=== PATIENT | male | born 1935 | race Caucasian/White ===

== ENCOUNTER 2016-10-02 13:30 | Emergency (ER) | payer MEDICARE, BC ==
[2016-10-02 13:36] LABS: Glucose,Whole Blood 520 mg/dL (75-99)
[2016-10-02] MEDS ORDERED: SODIUM CHLORIDE 0.9% 500 ML IV STA (13:40)
[2016-10-02] MEDS ORDERED: SODIUM CHLORIDE 0.9% 1,000 ML IV STA ×2 (13:40→14:29)
--- NOTE | 2016-10-02 13:51 | ED ---
General Adult HPI - General Chief complaint: Recheck/Abnormal Lab/Rx Stated complaint: Hyperglycemia Time Seen by Provider: 10/02/16 13:33 Source: patient, EMS Mode of arrival: EMS Limitations: no limitations - History of Present Illness Initial comments: This is a 72-year-old male to the ER for evaluation of elevated blood sugar. Patient has history of elevated blood sugar history of diabetes on oral hypoesthesias. Patient admits to all normal symptoms. No shortness of breath but he does complain of increased thirst and increased urination. No chest pain bowel pain, no nausea vomiting or diarrhea. - Related Data Home Medications Medication Instructions Recorded Confirmed Rosuvastatin Calcium [Crestor] 10 mg PO HS 07/21/15 10/02/16 Atenolol [Tenormin] 25 mg PO BID 10/01/15 10/02/16 [place]-3 Fatty Acids/Fish Oil [Fish 1 cap PO DAILY 10/01/15 10/02/16 Oil 1,000 mg Softgel] Pioglitazone HCl [Actos] 45 mg PO DAILY 10/01/15 10/02/16 Cholecalciferol [Vitamin D3] 2,000 unit PO DAILY 10/02/16 10/02/16 Ergocalciferol [Vitamin D2] 50,000 unit PO TH 10/02/16 10/02/16 Ferrous Sulfate [Feosol] 325 mg PO TID 10/02/16 10/02/16 Pantoprazole Sodium [Protonix] 40 mg PO DAILY 10/02/16 10/02/16 Warfarin Sodium [Warfarin Sodium] 5 mg PO SUMOTUWEFRSA@1700 10/02/16 10/02/16 Warfarin Sodium [Warfarin Sodium] 7.5 mg PO TH@1700 10/02/16 10/02/16 Previous Rx's Medication Instructions Recorded Digoxin [Lanoxin] 125 mcg PO DAILY #30 tab 07/26/15 glipiZIDE [Glucotrol] 5 mg PO BID #60 tab 10/02/16 Allergies Allergy/AdvReac Type Severity Reaction Status Date / Time chlorpheniramine Allergy Unknown Verified 10/02/16 14:39 [From Deconamine] Penicillins Allergy Unknown Verified 10/02/16 14:21 pseudoephedrine Allergy Unknown Verified 10/02/16 14:39 [From Deconamine] Review of Systems ROS Statement: Those systems with pertinent positive or pertinent negative responses have been documented in the HPI. ROS Other: All systems not noted in ROS Statement are negative. Past Medical History Past Medical History: Atrial Fibrillation, CVA/TIA, Diabetes Mellitus, GERD/ Reflux, GI Bleed, Hyperlipidemia, Hypertension, Renal Disease Additional Past Medical History / Comment(s): ANtral ulcer per EGD. Other hx: episodes of epistaxis, chronic renal failure, iron deficiency anemia, vertigo. History of Any Multi-Drug Resistant Organisms: None Reported Past Surgical History: Appendectomy, Tonsillectomy Additional Past Surgical History / Comment(s): 07/23/15 EGD Past Anesthesia/Blood Transfusion Reactions: No Reported Reaction Additional Past Anesthesia/Blood Transfusion Reaction / Comment(s): Pt recently (last admission) received blood without reaction. Past Psychological History: No Psychological Hx Reported Additional Psychological History / Comment(s): claustrophobia. Smoking Status: Never smoker Past Alcohol Use History: Rare Past Drug Use History: None Reported - Past Family History Mother Family Medical History: Asthma, Congestive Heart Failure (CHF), COPD Father Additional Family Medical History / Comment(s): anerurysm between the heart and the lung General Exam Limitations: no limitations General appearance: alert, in no apparent distress Head exam: Present: atraumatic, normocephalic, normal inspection Eye exam: Present: normal appearance, PERRL, EOMI. Absent: scleral icterus, conjunctival injection, periorbital swelling ENT exam: Present: normal exam, mucous membranes moist Neck exam: Present: normal inspection. Absent: tenderness, meningismus, lymphadenopathy Respiratory exam: Present: normal lung sounds bilaterally. Absent: respiratory distress, wheezes, rales, rhonchi, stridor Cardiovascular Exam: Present: regular rate, normal rhythm, normal heart sounds. Absent: systolic murmur, diastolic murmur, rubs, gallop, clicks GI/Abdominal exam: Present: soft, normal bowel sounds. Absent: distended, tenderness, guarding, rebound, rigid Extremities exam: Present: normal inspection, full ROM, normal capillary refill. Absent: tenderness, pedal edema, joint swelling, calf tenderness Back exam: Present: normal inspection Neurological exam: Present: alert, oriented X3, CN II-XII intact Psychiatric exam: Present: normal affect, normal mood Skin exam: Present: warm, dry, intact, normal color. Absent: rash Course Vital Signs 10/02/16 10/02/16 10/02/16 13:33 14:20 15:39 Temperature 97.5 F L 96.5 F L Pulse Rate 69 66 62 Respiratory 20 20 18 Rate Blood Pressure 215/84 189/83 190/84 O2 Sat by Pulse 97 98 99 Oximetry EKG Findings - EKG Comments: EKG Findings:: EKG shows normal sinus rhythm at 69, OH 88, QRS 94, QTC 415 Medical Decision Making - Medical Decision Making 80 male ER for evaluation of elevated blood sugar . patient's blood sugar this time is improved however is normal . patient given diabetic education here in the emergency room , will add oralHypoglycemic and patient will be discharged home - Lab Data Result diagrams: 10/02/16 13:40 10/02/16 13:40 Lab Results 10/02/16 10/02/16 10/02/16 Range/Units 13:34 13:40 13:40 WBC (3.8-10.6) k/uL RBC (4.30-5.90) m/uL Hgb (13.0-17.5) gm/dL Hct (39.0-53.0) % MCV (80.0-100.0) fL MCH (25.0-35.0) pg MCHC (31.0-37.0) g/dL RDW (11.5-15.5) % Plt Count (150-450) k/uL Neutrophils % % Lymphocytes % % Monocytes % % Eosinophils % % Basophils % % Neutrophils # (1.3-7.7) k/uL Lymphocytes # (1.0-4.8) k/uL Monocytes # (0-1.0) k/uL Eosinophils # (0-0.7) k/uL Basophils # (0-0.2) k/uL PT (9.0-12.0) sec INR (<1.1) APTT (22.0-30.0) sec Sodium 137 (137-145) mmol/L Potassium 3.3 L (3.5-5.1) mmol/L Chloride 118 H (98-107) mmol/L Carbon Dioxide 16 L (22-30) mmol/L Anion Gap 3 mmol/L BUN 16 (9-20) mg/dL Creatinine 0.66 (0.66-1.25) mg/dL Est GFR (MDRD) Af Amer >60 (>60 ml/min/1.73 sqM) Est GFR (MDRD) Non-Af >60 (>60 ml/min/1.73 sqM) Glucose 380 H (74-99) mg/dL POC Glucose (mg/dL) 520 H (75-99) mg/dL POC Glu Clinical Nurse Leader ID Mallika Trejo Estimated Ave Glu mg/dL mg/dL Hemoglobin A1c (4.2-6.1) % Calcium 5.1 L* (8.4-10.2) mg/dL Phosphorus 1.7 L (2.5-4.5) mg/dL Magnesium 1.1 L (1.6-2.3) mg/dL Total Bilirubin 0.4 (0.2-1.3) mg/dL AST 27 (17-59) U/L ALT 39 (21-72) U/L Alkaline Phosphatase 49 (38-126) U/L Total Creatine Kinase 82 (55-170) U/L CK-MB (CK-2) 0.9 (0.0-2.4) ng/mL CK-MB (CK-2) Rel Index 1.1 Troponin I <0.012 (0.000-0.034) ng/mL Total Protein 4.0 L (6.3-8.2) g/dL Albumin 1.9 L (3.5-5.0) g/dL Urine Color Urine Appearance (Clear) Urine pH (5.0-8.0) Ur Specific [place] (1.001-1.035) Urine Protein (Negative) Urine Glucose (UA) (Negative) Urine Ketones (Negative) Urine Blood (Negative) Urine Nitrite (Negative) Urine Bilirubin (Negative) Urine Urobilinogen (<2.0) mg/dL Ur Leukocyte Esterase (Negative) Acetone, Qual Negative (Negative) 10/02/16 10/02/16 10/02/16 Range/Units 13:40 13:40 13:40 WBC 6.6 (3.8-10.6) k/uL RBC 4.40 (4.30-5.90) m/uL Hgb 12.7 L (13.0-17.5) gm/dL Hct 39.5 (39.0-53.0) % MCV 89.9 (80.0-100.0) fL MCH 28.9 (25.0-35.0) pg MCHC 32.2 (31.0-37.0) g/dL RDW 13.0 (11.5-15.5) % Plt Count 202 (150-450) k/uL Neutrophils % 72 % Lymphocytes % 18 % Monocytes % 6 % Eosinophils % 2 % Basophils % 1 % Neutrophils # 4.7 (1.3-7.7) k/uL Lymphocytes # 1.2 (1.0-4.8) k/uL Monocytes # 0.4 (0-1.0) k/uL Eosinophils # 0.2 (0-0.7) k/uL Basophils # 0.1 (0-0.2) k/uL PT 17.5 H (9.0-12.0) sec INR 1.8 (<1.1) APTT 28.0 (22.0-30.0) sec Sodium (137-145) mmol/L Potassium (3.5-5.1) mmol/L Chloride (98-107) mmol/L Carbon Dioxide (22-30) mmol/L Anion Gap mmol/L BUN (9-20) mg/dL Creatinine (0.66-1.25) mg/dL Est GFR (MDRD) Af Amer (>60 ml/min/1.73 sqM) Est GFR (MDRD) Non-Af (>60 ml/min/1.73 sqM) Glucose (74-99) mg/dL POC Glucose (mg/dL) (75-99) mg/dL POC Glu Clinical Nurse Leader ID Estimated Ave Glu mg/dL mg/dL Hemoglobin A1c (4.2-6.1) % Calcium (8.4-10.2) mg/dL Phosphorus (2.5-4.5) mg/dL Magnesium (1.6-2.3) mg/dL Total Bilirubin (0.2-1.3) mg/dL AST (17-59) U/L ALT (21-72) U/L Alkaline Phosphatase (38-126) U/L Total Creatine Kinase (55-170) U/L CK-MB (CK-2) (0.0-2.4) ng/mL CK-MB (CK-2) Rel Index Troponin I (0.000-0.034) ng/mL Total Protein (6.3-8.2) g/dL Albumin (3.5-5.0) g/dL Urine Color Light Yellow Urine Appearance Clear (Clear) Urine pH 6.0 (5.0-8.0) Ur Specific [place] 1.019 (1.001-1.035) Urine Protein Negative (Negative) Urine Glucose (UA) 4+ H (Negative) Urine Ketones Negative (Negative) Urine Blood Negative (Negative) Urine Nitrite Negative (Negative) Urine Bilirubin Negative (Negative) Urine Urobilinogen <2.0 (<2.0) mg/dL Ur Leukocyte Esterase Negative (Negative) Acetone, Qual (Negative) 10/02/16 10/02/16 Range/Units 13:40 15:27 WBC (3.8-10.6) k/uL RBC (4.30-5.90) m/uL Hgb (13.0-17.5) gm/dL Hct (39.0-53.0) % MCV (80.0-100.0) fL MCH (25.0-35.0) pg MCHC (31.0-37.0) g/dL RDW (11.5-15.5) % Plt Count (150-450) k/uL Neutrophils % % Lymphocytes % % Monocytes % % Eosinophils % % Basophils % % Neutrophils # (1.3-7.7) k/uL Lymphocytes # (1.0-4.8) k/uL Monocytes # (0-1.0) k/uL Eosinophils # (0-0.7) k/uL Basophils # (0-0.2) k/uL PT (9.0-12.0) sec INR (<1.1) APTT (22.0-30.0) sec Sodium (137-145) mmol/L Potassium (3.5-5.1) mmol/L Chloride (98-107) mmol/L Carbon Dioxide (22-30) mmol/L Anion Gap mmol/L BUN (9-20) mg/dL Creatinine (0.66-1.25) mg/dL Est GFR (MDRD) Af Amer (>60 ml/min/1.73 sqM) Est GFR (MDRD) Non-Af (>60 ml/min/1.73 sqM) Glucose (74-99) mg/dL POC Glucose (mg/dL) 353 H (75-99) mg/dL POC Glu Clinical Nurse Leader ID Kenisha Lanza Estimated Ave Glu mg/dL 269 mg/dL Hemoglobin A1c 11.0 H (4.2-6.1) % Calcium (8.4-10.2) mg/dL Phosphorus (2.5-4.5) mg/dL Magnesium (1.6-2.3) mg/dL Total Bilirubin (0.2-1.3) mg/dL AST (17-59) U/L ALT (21-72) U/L Alkaline Phosphatase (38-126) U/L Total Creatine Kinase (55-170) U/L CK-MB (CK-2) (0.0-2.4) ng/mL CK-MB (CK-2) Rel Index Troponin I (0.000-0.034) ng/mL Total Protein (6.3-8.2) g/dL Albumin (3.5-5.0) g/dL Urine Color Urine Appearance (Clear) Urine pH (5.0-8.0) Ur Specific [place] (1.001-1.035) Urine Protein (Negative) Urine Glucose (UA) (Negative) Urine Ketones (Negative) Urine Blood (Negative) Urine Nitrite (Negative) Urine Bilirubin (Negative) Urine Urobilinogen (<2.0) mg/dL Ur Leukocyte Esterase (Negative) Acetone, Qual (Negative) Disposition Clinical Impression: Insulin dependent diabetes mellitus Disposition: HOME SELF-CARE Condition: Good Instructions: Type 2 Diabetes in Adults (ED), How to Give an Insulin Injection (ED), Type 1 Diabetes in Adults (ED) Prescriptions: glipiZIDE [Glucotrol] 5 mg PO BID #60 tab Referrals: Mera Garcia MD [Primary Care Provider] - 1-2 days
[2016-10-02 13:53] LABS: Appearance,Urine Clear (Clear); Basophils # (A) 0.1 k/uL (0-0.2); Basophils % (A) 1 %; Bilirubin,Urine Negative (Negative); CHCM 32.5; Eosinophils # (A) 0.2 k/uL (0-0.7); Eosinophils % (A) 2 %; Glucose,Urine (UA) 4+ (Negative); HCT 39.5 % (39.0-53.0); HDW 2.51; HGB 12.7 gm/dL (13.0-17.5); Ketones,Urine Negative (Negative); Leukocyte Esterase,Urine Negative (Negative); Luc % (Auto) 2; Lymphocytes # (A) 1.2 k/uL (1.0-4.8); Lymphocytes % (A) 18 %; MCH 28.9 pg (25.0-35.0); MCHC 32.2 g/dL (31.0-37.0); MCV 89.9 fL (80.0-100.0); Mean Platelet Volume 7.1; Monocytes # (A) 0.4 k/uL (0-1.0); Monocytes % (A) 6 %; Neutrophils # (A) 4.7 k/uL (1.3-7.7); Neutrophils % (A) 72 %; Nitrite,Urine Negative (Negative); Protein,Urine Negative (Negative); Specific Gravity,Urine 1.019 (1.001-1.035); UA Billing (MACRO vs. MICRO) CHEM; Urobilinogen,Urine <2.0 mg/dL (<2.0); WBC 6.6 k/uL (3.8-10.6); WBC (Perox) 6.56
[2016-10-02 14:04] LABS: INR 1.8 (<1.1); Prothrombin Time 17.5 sec (9.0-12.0)
[2016-10-02 14:15] LABS: Creatine Kinase 82 U/L (55-170)
[2016-10-02 14:16] LABS: ALT 39 U/L (21-72); AST 27 U/L (17-59); Alkaline Phosphatase 49 U/L (38-126); Anion Gap 3 mmol/L; Blood Urea Nitrogen 16 mg/dL (9-20); Carbon Dioxide 16 mmol/L (22-30); Chloride 118 mmol/L (98-107); Glucose 380 mg/dL (74-99); Magnesium 1.1 mg/dL (1.6-2.3); Non-African American GFR(MDRD) >60 (>60 ml/min/1.73 sqM); Phosphorous 1.7 mg/dL (2.5-4.5); Potassium 3.3 mmol/L (3.5-5.1); Sodium 137 mmol/L (137-145); Total Bilirubin 0.4 mg/dL (0.2-1.3)
--- NOTE | 2016-10-02 14:17 | XR ---
EXAMINATION TYPE: XR chest 2V DATE OF EXAM: 10/02/2016 2:10 PM COMPARISON: NONE TECHNIQUE: PA and lateral views submitted. HISTORY: Weakness FINDINGS: The lungs are clear and there is no pneumothorax, pleural effusion, or focal pneumonia. Hyperinflat ion suggests COPD. Questionable nodular density left lower lobe. This may be related to anterior lyndon in of the rib. Either bilateral oblique views of the chest or CT scan could be obtained. Arthropathy of the shoulders. IMPRESSION: 1. Possible nodular density left lower lobe. Suspect this may be related to the anterior margin of th e rib. Consider bilateral oblique views of the chest or CT scan chest for further evaluation.
[2016-10-02] MEDS ORDERED: INSULIN REGULAR 100 UNIT/ML VIAL IV ONE ×2 (14:24→14:29)
[2016-10-02] MEDS ORDERED: INSULIN REGULAR 100 UNIT/ML VIAL SQ ONE ×2 (14:24→14:29)
[2016-10-02 14:27] LABS: Creatine Kinase MB 0.9 ng/mL (0.0-2.4); Troponin I <0.012 ng/mL (0.000-0.034)
[2016-10-02 14:28] LABS: Calcium 5.1 mg/dL (8.4-10.2)
[2016-10-02] MEDS ORDERED: POTASSIUM CHLORIDE ER 20 MEQ TAB.ER PO STA (14:48)
[2016-10-02] MEDS ORDERED: MAGNESIUM OXIDE 400 MG TAB PO STA (14:49)
[2016-10-02 15:28] LABS: Glucose,Whole Blood 353 mg/dL (75-99)
[2016-10-02 15:41] VITALS: BP 190/84; PULSE 62; RESP 18; TEMP 96.5
== END 2016-10-02 15:39 | disposition home or self-care (01) ==
LOC: EC 13:30
DX: E11.65 Type 2 diabetes mellitus with hyperglycemia (principal); E11.29 Type 2 diabetes mellitus with other diabetic kidney complication; I12.9 Hypertensive chronic kidney disease with stage 1 through stage 4 chronic kidney disease, or unspecified chronic kidney disease; N18.9 Chronic kidney disease, unspecified; K21.9 Gastro-esophageal reflux disease without esophagitis; I48.91 Unspecified atrial fibrillation; Z79.01 Long term (current) use of anticoagulants; Z79.899 Other long term (current) drug therapy; Z88.0 Allergy status to penicillin; Z88.8 Allergy status to other drugs, medicaments and biological substances; Z86.73 Personal history of transient ischemic attack (TIA), and cerebral infarction without residual deficits
CPT/HCPCS: 36415; 71020; 80053; 81003; 82009; 82550; 82553; 83036; 83735; 84100; 84484; 85025; 85610; 85730; 87086; 93005; 96360; 96361; 99285

== ENCOUNTER 2017-10-24 21:47 | Inpatient (IN) | payer MEDICARE, BC ==
[2017-10-24] MEDS ORDERED: SODIUM CHLORIDE 0.9% 1,000 ML IV ONE (21:55)
[2017-10-24] MEDS ORDERED: IBUPROFEN 600 MG TAB PO STA (21:56)
[2017-10-24] MEDS ORDERED: ACETAMINOPHEN TAB 500 MG TAB PO STA (21:57)
--- NOTE | 2017-10-24 22:00 | ED ---
General Adult HPI - General Stated complaint: alter mental status Time Seen by Provider: 10/24/17 21:47 Source: RN notes reviewed - History of Present Illness Initial comments: This is a 81-year-old male who presents emergency Department with EMS. According to EMS the states the patient was incontinent all day so she did give him Augmentin earlier in the day but about 15 minutes prior to EMS arriving he became confused was only alert and oriented times one when EMS arrived. EMS states he was under multiple blankets and was sweating profusely once he took the blankets off gave him some oxygen and a little bit of a fluid bolus the patient was alert and oriented 4. Patient states he has been incontinent most the day. Patient denies any pain. Patient denies any headache patient denies numbness weakness. Patient denies lightheadedness or any dizziness. Patient denies any chest pain palpitations difficulty breathing shortness of breath. Patient denies abdominal pain patient denies nausea vomiting or diarrhea. - Related Data Home Medications Medication Instructions Recorded Confirmed Rosuvastatin Calcium [Crestor] 10 mg PO HS 07/21/15 10/02/16 Atenolol [Tenormin] 25 mg PO BID 10/01/15 10/02/16 [place]-3 Fatty Acids/Fish Oil [Fish 1 cap PO DAILY 10/01/15 10/02/16 Oil 1,000 mg Softgel] Pioglitazone HCl [Actos] 45 mg PO DAILY 10/01/15 10/02/16 Cholecalciferol [Vitamin D3] 2,000 unit PO DAILY 10/02/16 10/02/16 Ergocalciferol [Vitamin D2] 50,000 unit PO TH 10/02/16 10/02/16 Ferrous Sulfate [Feosol] 325 mg PO TID 10/02/16 10/02/16 Pantoprazole Sodium [Protonix] 40 mg PO DAILY 10/02/16 10/02/16 Warfarin Sodium [Warfarin Sodium] 5 mg PO SUMOTUWEFRSA@1700 10/02/16 10/02/16 Warfarin Sodium [Warfarin Sodium] 7.5 mg PO TH@1700 10/02/16 10/02/16 Previous Rx's Medication Instructions Recorded Digoxin [Lanoxin] 125 mcg PO DAILY #30 tab 07/26/15 glipiZIDE [Glucotrol] 5 mg PO BID #60 tab 10/02/16 Allergies Allergy/AdvReac Type Severity Reaction Status Date / Time chlorpheniramine Allergy Unknown Verified 10/02/16 14:39 [From Deconamine] Penicillins Allergy Unknown Verified 10/02/16 14:21 pseudoephedrine Allergy Unknown Verified 10/02/16 14:39 [From Deconamine] Review of Systems ROS Statement: Those systems with pertinent positive or pertinent negative responses have been documented in the HPI. ROS Other: All systems not noted in ROS Statement are negative. Past Medical History Past Medical History: Atrial Fibrillation, CVA/TIA, Diabetes Mellitus, GERD/ Reflux, GI Bleed, Hyperlipidemia, Hypertension, Renal Disease Additional Past Medical History / Comment(s): ANtral ulcer per EGD. Other hx: episodes of epistaxis, chronic renal failure, iron deficiency anemia, vertigo. History of Any Multi-Drug Resistant Organisms: None Reported Past Surgical History: Appendectomy, Tonsillectomy Additional Past Surgical History / Comment(s): 07/23/15 EGD Past Anesthesia/Blood Transfusion Reactions: No Reported Reaction Additional Past Anesthesia/Blood Transfusion Reaction / Comment(s): Pt recently (last admission) received blood without reaction. Past Psychological History: No Psychological Hx Reported Additional Psychological History / Comment(s): claustrophobia. Smoking Status: Never smoker Past Alcohol Use History: Rare Past Drug Use History: None Reported - Past Family History Mother Family Medical History: Asthma, Congestive Heart Failure (CHF), COPD Father Additional Family Medical History / Comment(s): anerurysm between the heart and the lung General Exam - General Exam Comments Initial Comments: GENERAL: Patient is well-developed and well-nourished. Patient is nontoxic and well- hydrated and is in mild distress. ENT: Neck is soft and supple. No significant lymphadenopathy is noted. Oropharynx is clear. Moist mucous membranes. Neck has full range of motion without eliciting any pain. EYES: The sclera were anicteric and conjunctiva were pink and moist. Extraocular movements were intact and pupils were equal round and reactive to light. Eyelids were unremarkable. PULMONARY: Unlabored respirations. Good breath sounds bilaterally. No audible rales rhonchi or wheezing was noted. CARDIOVASCULAR: There is a regular rate and rhythm without any murmurs gallops or rubs. ABDOMEN: Soft and nontender with normal bowel sounds. No palpable organomegaly was noted. There is no palpable pulsatile mass. SKIN: Skin is clear with no lesions or rashes and otherwise unremarkable. NEUROLOGIC: Patient is alert and oriented x3. Cranial nerves II through XII are grossly intact. Motor and sensory are also intact. Normal speech, volume and content. Symmetrical smile. MUSCULOSKELETAL: Normal extremities with adequate strength and full range of motion. No lower extremity swelling or edema. No calf tenderness. LYMPHATICS: No significant lymphadenopathy is noted PSYCHIATRIC: Normal psychiatric evaluation. Normal interpersonal interactions appears functionally intact in deals appropriately with others. No signs of depression. No signs of anxiety. Course Vital Signs 10/24/17 10/24/17 10/24/17 21:51 22:48 23:51 Temperature 100.1 F H 99.4 F Pulse Rate 89 82 80 Respiratory 16 16 16 Rate Blood Pressure 176/79 131/61 105/57 O2 Sat by Pulse 96 97 96 Oximetry Medical Decision Making - Medical Decision Making EKG shows normal sinus rhythm at 87 bpm ID interval 162 QRS is 86 QT interval 362 QTC is 435. Patient's EKG shows no ST segment elevation or depression. Chest x-ray shows no acute abnormality. CT of the brain shows no acute abnormality. Patient's urine shows an infection so I gave the patient 1 g of Rocephin. Patient has been alert and oriented 4 since been emergency department. Patient's troponin was elevated I reinterviewed the patient says he's never experienced any chest pain tonight he currently has no chest pain. I spoke with cardiology and they're in agreement with bringing the patient and repeating the enzymes as well as started the patient on heparin. - Lab Data Result diagrams: 10/24/17 22:11 10/24/17 22:11 Lab Results 10/24/17 10/24/17 10/24/17 Range/Units 21:54 22:11 22:11 WBC 14.7 H (3.8-10.6) k/uL RBC 4.61 (4.30-5.90) m/uL Hgb 13.1 (13.0-17.5) gm/dL Hct 39.0 (39.0-53.0) % MCV 84.4 (80.0-100.0) fL MCH 28.3 (25.0-35.0) pg MCHC 33.5 (31.0-37.0) g/dL RDW 13.3 (11.5-15.5) % Plt Count 191 (150-450) k/uL Neutrophils % 90 % Lymphocytes % 4 % Monocytes % 4 % Eosinophils % 1 % Basophils % 0 % Neutrophils # 13.2 H (1.3-7.7) k/uL Lymphocytes # 0.7 L (1.0-4.8) k/uL Monocytes # 0.6 (0-1.0) k/uL Eosinophils # 0.2 (0-0.7) k/uL Basophils # 0.1 (0-0.2) k/uL PT (9.0-12.0) sec INR (<1.2) APTT (22.0-30.0) sec Sodium (137-145) mmol/L Potassium (3.5-5.1) mmol/L Chloride (98-107) mmol/L Carbon Dioxide (22-30) mmol/L Anion Gap mmol/L BUN (9-20) mg/dL Creatinine (0.66-1.25) mg/dL Est GFR (CKD-EPI)AfAm (>60 ml/min/1.73 sqM) Est GFR (CKD-EPI)NonAf (>60 ml/min/1.73 sqM) Glucose (74-99) mg/dL POC Glucose (mg/dL) 178 H (75-99) mg/dL POC Glu [employer] Frequency Design Engineer ID Calcium (8.4-10.2) mg/dL Total Bilirubin (0.2-1.3) mg/dL AST (17-59) U/L ALT (21-72) U/L Alkaline Phosphatase (38-126) U/L Total Creatine Kinase 418 H (55-170) U/L CK-MB (CK-2) 1.2 (0.0-2.4) ng/mL CK-MB (CK-2) Rel Index 0.3 Troponin I 0.232 H* (0.000-0.034) ng/mL Total Protein (6.3-8.2) g/dL Albumin (3.5-5.0) g/dL Urine Color Urine Appearance (Clear) Urine pH (5.0-8.0) Ur Specific [place] (1.001-1.035) Urine Protein (Negative) Urine Glucose (UA) (Negative) Urine Ketones (Negative) Urine Blood (Negative) Urine Nitrite (Negative) Urine Bilirubin (Negative) Urine Urobilinogen (<2.0) mg/dL Ur Leukocyte Esterase (Negative) Urine RBC (0-5) /hpf Urine WBC (0-5) /hpf Ur Squamous Epith Cells (0-4) /hpf Urine Mucus (None) /hpf Urine Opiates Screen (NotDetected) Ur Oxycodone Screen (NotDetected) Urine Methadone Screen (NotDetected) Ur Propoxyphene Screen (NotDetected) Ur Barbiturates Screen (NotDetected) U Tricyclic Antidepress (NotDetected) Ur Phencyclidine Scrn (NotDetected) Ur Amphetamines Screen (NotDetected) U Methamphetamines Scrn (NotDetected) U Benzodiazepines Scrn (NotDetected) Urine Cocaine Screen (NotDetected) U Marijuana (THC) Screen (NotDetected) Influenza Type A RNA (Not Detectd) Influenza Type B (PCR) (Not Detectd) 10/24/17 10/24/17 10/24/17 Range/Units 22:11 22:11 22:15 WBC (3.8-10.6) k/uL RBC (4.30-5.90) m/uL Hgb (13.0-17.5) gm/dL Hct (39.0-53.0) % MCV (80.0-100.0) fL MCH (25.0-35.0) pg MCHC (31.0-37.0) g/dL RDW (11.5-15.5) % Plt Count (150-450) k/uL Neutrophils % % Lymphocytes % % Monocytes % % Eosinophils % % Basophils % % Neutrophils # (1.3-7.7) k/uL Lymphocytes # (1.0-4.8) k/uL Monocytes # (0-1.0) k/uL Eosinophils # (0-0.7) k/uL Basophils # (0-0.2) k/uL PT 16.3 H (9.0-12.0) sec INR 1.8 H (<1.2) APTT 29.5 (22.0-30.0) sec Sodium 133 L (137-145) mmol/L Potassium 4.2 (3.5-5.1) mmol/L Chloride 99 (98-107) mmol/L Carbon Dioxide 20 L (22-30) mmol/L Anion Gap 14 mmol/L BUN 26 H (9-20) mg/dL Creatinine 1.42 H (0.66-1.25) mg/dL Est GFR (CKD-EPI)AfAm 54 (>60 ml/min/1.73 sqM) Est GFR (CKD-EPI)NonAf 47 (>60 ml/min/1.73 sqM) Glucose 187 H (74-99) mg/dL POC Glucose (mg/dL) (75-99) mg/dL POC Glu [employer] Frequency Design Engineer ID Calcium 8.5 (8.4-10.2) mg/dL Total Bilirubin 1.3 (0.2-1.3) mg/dL AST 42 (17-59) U/L ALT 50 (21-72) U/L Alkaline Phosphatase 49 (38-126) U/L Total Creatine Kinase (55-170) U/L CK-MB (CK-2) (0.0-2.4) ng/mL CK-MB (CK-2) Rel Index Troponin I (0.000-0.034) ng/mL Total Protein 5.9 L (6.3-8.2) g/dL Albumin 3.5 (3.5-5.0) g/dL Urine Color Urine Appearance (Clear) Urine pH (5.0-8.0) Ur Specific [place] (1.001-1.035) Urine Protein (Negative) Urine Glucose (UA) (Negative) Urine Ketones (Negative) Urine Blood (Negative) Urine Nitrite (Negative) Urine Bilirubin (Negative) Urine Urobilinogen (<2.0) mg/dL Ur Leukocyte Esterase (Negative) Urine RBC (0-5) /hpf Urine WBC (0-5) /hpf Ur Squamous Epith Cells (0-4) /hpf Urine Mucus (None) /hpf Urine Opiates Screen Not Detected (NotDetected) Ur Oxycodone Screen Not Detected (NotDetected) Urine Methadone Screen Not Detected (NotDetected) Ur Propoxyphene Screen Not Detected (NotDetected) Ur Barbiturates Screen Not Detected (NotDetected) U Tricyclic Antidepress Not Detected (NotDetected) Ur Phencyclidine Scrn Not Detected (NotDetected) Ur Amphetamines Screen Not Detected (NotDetected) U Methamphetamines Scrn Not Detected (NotDetected) U Benzodiazepines Scrn Not Detected (NotDetected) Urine Cocaine Screen Not Detected (NotDetected) U Marijuana (THC) Screen Not Detected (NotDetected) Influenza Type A RNA (Not Detectd) Influenza Type B (PCR) (Not Detectd) 10/24/17 10/24/17 Range/Units 22:15 22:15 WBC (3.8-10.6) k/uL RBC (4.30-5.90) m/uL Hgb (13.0-17.5) gm/dL Hct (39.0-53.0) % MCV (80.0-100.0) fL MCH (25.0-35.0) pg MCHC (31.0-37.0) g/dL RDW (11.5-15.5) % Plt Count (150-450) k/uL Neutrophils % % Lymphocytes % % Monocytes % % Eosinophils % % Basophils % % Neutrophils # (1.3-7.7) k/uL Lymphocytes # (1.0-4.8) k/uL Monocytes # (0-1.0) k/uL Eosinophils # (0-0.7) k/uL Basophils # (0-0.2) k/uL PT (9.0-12.0) sec INR (<1.2) APTT (22.0-30.0) sec Sodium (137-145) mmol/L Potassium (3.5-5.1) mmol/L Chloride (98-107) mmol/L Carbon Dioxide (22-30) mmol/L Anion Gap mmol/L BUN (9-20) mg/dL Creatinine (0.66-1.25) mg/dL Est GFR (CKD-EPI)AfAm (>60 ml/min/1.73 sqM) Est GFR (CKD-EPI)NonAf (>60 ml/min/1.73 sqM) Glucose (74-99) mg/dL POC Glucose (mg/dL) (75-99) mg/dL POC Glu Radio Frequency Design Engineer ID Calcium (8.4-10.2) mg/dL Total Bilirubin (0.2-1.3) mg/dL AST (17-59) U/L ALT (21-72) U/L Alkaline Phosphatase (38-126) U/L Total Creatine Kinase (55-170) U/L CK-MB (CK-2) (0.0-2.4) ng/mL CK-MB (CK-2) Rel Index Troponin I (0.000-0.034) ng/mL Total Protein (6.3-8.2) g/dL Albumin (3.5-5.0) g/dL Urine Color Yellow Urine Appearance Cloudy (Clear) Urine pH 5.5 (5.0-8.0) Ur Specific [place] 1.019 (1.001-1.035) Urine Protein 1+ H (Negative) Urine Glucose (UA) Negative (Negative) Urine Ketones Trace H (Negative) Urine Blood Moderate H (Negative) Urine Nitrite Negative (Negative) Urine Bilirubin Negative (Negative) Urine Urobilinogen 2.0 (<2.0) mg/dL Ur Leukocyte Esterase Moderate H (Negative) Urine RBC 19 H (0-5) /hpf Urine WBC 53 H (0-5) /hpf Ur Squamous Epith Cells <1 (0-4) /hpf Urine Mucus Rare H (None) /hpf Urine Opiates Screen (NotDetected) Ur Oxycodone Screen (NotDetected) Urine Methadone Screen (NotDetected) Ur Propoxyphene Screen (NotDetected) Ur Barbiturates Screen (NotDetected) U Tricyclic Antidepress (NotDetected) Ur Phencyclidine Scrn (NotDetected) Ur Amphetamines Screen (NotDetected) U Methamphetamines Scrn (NotDetected) U Benzodiazepines Scrn (NotDetected) Urine Cocaine Screen (NotDetected) U Marijuana (THC) Screen (NotDetected) Influenza Type A RNA Not Detected (Not Detectd) Influenza Type B (PCR) Not Detected (Not Detectd) Disposition Clinical Impression: Non-STEMI (non-ST elevated myocardial infarction), Urinary tract infection, Altered mental status Disposition: ADMITTED IP TO THIS HOSP Referrals: Mera Garcia MD [Primary Care Provider] - 1-2 days Time of Disposition: 23:57
[2017-10-24 22:09] LABS: Glucose,Whole Blood 178 mg/dL (75-99)
[2017-10-24 22:22] LABS: Basophils # (A) 0.1 k/uL (0-0.2); Basophils % (A) 0 %; Eosinophils # (A) 0.2 k/uL (0-0.7); Eosinophils % (A) 1 %; HGB 13.1 gm/dL (13.0-17.5); Lymphocytes # (A) 0.7 k/uL (1.0-4.8); Lymphocytes % (A) 4 %; MCH 28.3 pg (25.0-35.0); MCHC 33.5 g/dL (31.0-37.0); MCV 84.4 fL (80.0-100.0); Mean Platelet Volume 6.6; Monocytes # (A) 0.6 k/uL (0-1.0); Monocytes % (A) 4 %; Neutrophils # (A) 13.2 k/uL (1.3-7.7); Neutrophils % (A) 90 %; Platelet Count 191 k/uL (150-450); RBC 4.61 m/uL (4.30-5.90); RDW 13.3 % (11.5-15.5); WBC 14.7 k/uL (3.8-10.6)
[2017-10-24 22:30] LABS: INR 1.8 (<1.2); Partial Thromboplastin Time 29.5 sec (22.0-30.0); Prothrombin Time 16.3 sec (9.0-12.0)
[2017-10-24 22:34] LABS: Appearance,Urine Cloudy (Clear); Bilirubin,Urine Negative (Negative); Blood,Urine Moderate (Negative); Color,Urine Yellow; Glucose,Urine (UA) Negative (Negative); Ketones,Urine Trace (Negative); Leukocyte Esterase,Urine Moderate (Negative); Mucus,Urine Rare /hpf; Nitrite,Urine Negative (Negative); PH, Urine 5.5 (5.0-8.0); Protein,Urine 1+ (Negative); RBC,Urine 19 /hpf (0-5); Specific Gravity,Urine 1.019 (1.001-1.035); Squamous Epithelial Cell,Urine <1 /hpf (0-4); WBC,Urine 53 /hpf (0-5)
[2017-10-24 22:37] LABS: Albumin 3.5 g/dL (3.5-5.0); Calcium 8.5 mg/dL (8.4-10.2); Potassium 4.2 mmol/L (3.5-5.1); Total Bilirubin 1.3 mg/dL (0.2-1.3); Total Protein 5.9 g/dL (6.3-8.2)
[2017-10-24 22:45] LABS: Amphetamine Screen,Urine Not Detected (NotDetected); Barbiturate Screen,Urine Not Detected (NotDetected); Benzodiazepines Screen,Urine Not Detected (NotDetected); Cocaine Screen,Urine Not Detected (NotDetected); Methadone Screen, Urine Not Detected (NotDetected); Opiate Screen,Urine Not Detected (NotDetected); Oxycodone Screen, Urine Not Detected (NotDetected); Phencyclidine Screen,Urine Not Detected (NotDetected); Tricyclic Antidepressant,Urine Not Detected (NotDetected); Urn Cannabinoid Scrn Not Detected (NotDetected)
[2017-10-24 23:02] LABS: Creatine Kinase MB 1.2 ng/mL (0.0-2.4)
[2017-10-24 23:08] LABS: Troponin I 0.232 ng/mL (0.000-0.034)
[2017-10-24] MEDS ORDERED: cefTRIAXone IN SWFI 1,000 MG/10 ML SYRINGE IVP STA (23:25)
[2017-10-24] MEDS ORDERED: NITROGLYCERIN SL TABS 0.4 MG TAB SUBLINGUAL PRN (23:58)
[2017-10-25] MEDS ORDERED: HEPARIN SODIUM,PORCINE 5,000 UNIT/ML 1 ML VIAL IV ONE (00:03)
[2017-10-25] MEDS: NITROGLYCERIN OINT 1 INCH/GM PACKET TOPICAL SCH ×2 (00:15→06:42)
[2017-10-25] MEDS: HEPARIN SODIUM,PORCINE/D5W PMX 25,000 UNIT in DEXTROSE/WATER 1 500ML.BAG IV SCH ×2 (00:21→23:53)
--- NOTE | 2017-10-25 00:37 | CT ---
EXAMINATION TYPE: CT brain wo con DATE OF EXAM: 10/24/2017 COMPARISON: 05/18/2013 HISTORY: Altered mental status and fever. CT DLP: 995.5 mGycm Automated exposure control for dose reduction was used. FINDINGS: There is mild cerebral cortical atrophy. There is no mass effect nor midline shift. There is no sign of intracranial hemorrhage. There is mucosal thickening in the ethmoid and sphenoid sinuses. IMPRESSION: CEREBRAL ATROPHY. SINUSITIS THAT APPEARS NOT SIGNIFICANTLY DIFFERENT THAN OLD EXAM. NO ACUTE INTRACRA NIAL ABNORMALITY.
--- NOTE | 2017-10-25 00:38 | XR ---
EXAMINATION TYPE: XR chest 2V DATE OF EXAM: 10/24/2017 COMPARISON: 10/02/2016 HISTORY: Altered mental status TECHNIQUE: Frontal and lateral views of the chest are obtained. FINDINGS: There is no heart failure nor confluent pneumonic infiltrate. Costophrenic angles are priya r. Thoracic aorta is atheromatous. There are chest leads. Bony thorax is intact. IMPRESSION: No active cardiopulmonary disease. No change.
[2017-10-25 06:11] LABS: Creatine Kinase MB 3.2 ng/mL (0.0-2.4)
[2017-10-25 06:13] LABS: Troponin I 0.286 ng/mL (0.000-0.034)
[2017-10-25 06:23] LABS: Cholesterol 113 mg/dL (<200); HDL Cholesterol 34 mg/dL (40-60); LDL Cholesterol,Calculated 58 mg/dL (0-99); Triglycerides 106 mg/dL (<150)
[2017-10-25] MEDS: ASPIRIN 325 MG TAB PO SCH (12:31)
[2017-10-25 13:04] LABS: Troponin I 0.138 ng/mL (0.000-0.034)
[2017-10-25 13:45] LABS: INR 1.8 (<1.2); Prothrombin Time 16.7 sec (9.0-12.0)
[2017-10-25 14:28] VITALS: BMI 30.4
--- NOTE | 2017-10-25 14:51 | P.CRDCN ---
History of Present Illness Consult date: 10/25/17 History of present illness: This is a 81-year-old gentleman with history of atrial fibrillation who was admitted to the hospital through the emergency room with complaints of shaking and episode of confusion. He is diagnosed to have urinary tract infection and is being treated with antibiotics. Patient's blood work showed elevated troponin values. Patient had 3 troponins and the increase in the values is not consistent with acute DE. His EKG did not reveal any acute changes. Patient is in sinus rhythm. He denied any chest pain or shortness of breath. I'm going to discontinue heparin and Nitropaste and resume his home medication. His blood pressures have been running high. We'll continue his beta alyssa and I will also give him one dose of amlodipine. Further recommendations depend upon clinical course. No further cardiac workup at this time Past Medical History Past Medical History: Atrial Fibrillation, Diabetes Mellitus, GERD/Reflux, GI Bleed, Hyperlipidemia, Hypertension, Renal Disease Additional Past Medical History / Comment(s): ANtral ulcer per EGD. Other hx: episodes of epistaxis, chronic renal failure, iron deficiency anemia, vertigo. History of Any Multi-Drug Resistant Organisms: None Reported Past Surgical History: Appendectomy, Tonsillectomy Additional Past Surgical History / Comment(s): 07/23/15 EGD Past Anesthesia/Blood Transfusion Reactions: No Reported Reaction Additional Past Anesthesia/Blood Transfusion Reaction / Comment(s): Pt recently (last admission) received blood without reaction. Past Psychological History: No Psychological Hx Reported Additional Psychological History / Comment(s): claustrophobia. Smoking Status: Never smoker Past Alcohol Use History: Rare Past Drug Use History: None Reported - Past Family History Mother Family Medical History: Asthma, Congestive Heart Failure (CHF), COPD Father Additional Family Medical History / Comment(s): anerurysm between the heart and the lung Medications and Allergies Home Medications Medication Instructions Recorded Confirmed Type Rosuvastatin Calcium [Crestor] 10 mg PO HS 07/21/15 10/25/17 History Digoxin [Lanoxin] 125 mcg PO DAILY #30 tab 07/26/15 10/25/17 Rx Atenolol [Tenormin] 25 mg PO BID 10/01/15 10/25/17 History [place]-3 Fatty Acids/Fish Oil [Fish 1 cap PO DAILY 10/01/15 10/25/17 History Oil 1,000 mg Softgel] Pioglitazone HCl [Actos] 45 mg PO QAM 10/01/15 10/25/17 History Cholecalciferol [Vitamin D3] 2,000 unit PO DAILY 10/02/16 10/25/17 History Ergocalciferol [Vitamin D2] 50,000 unit PO TH 10/02/16 10/25/17 History Ferrous Sulfate [Feosol] 325 mg PO TID 10/02/16 10/25/17 History Pantoprazole Sodium [Protonix] 40 mg PO QAM 10/02/16 10/25/17 History Warfarin Sodium [Warfarin Sodium] 5 mg PO SUTUTHSA 10/02/16 10/25/17 History Warfarin Sodium [Warfarin Sodium] 7.5 mg PO MOWEFR 10/02/16 10/25/17 History Calcitriol [Rocaltrol] 0.25 mcg PO TH 10/25/17 10/25/17 History Allergies Allergy/AdvReac Type Severity Reaction Status Date / Time chlorpheniramine Allergy Unknown Verified 10/25/17 11:58 [From Deconamine] Penicillins Allergy Unknown Verified 10/25/17 11:58 pseudoephedrine Allergy Unknown Verified 10/25/17 11:58 [From Deconamine] Physical Exam Vitals: Vital Signs Temp Pulse Pulse Resp BP BP Pulse Ox 10/25/17 13:30 97.6 F 89 18 177/81 92 L 10/25/17 12:20 97.8 F 85 18 179/80 98 10/25/17 07:36 80 18 160/78 96 10/25/17 06:46 98.0 F 80 16 181/80 98 10/25/17 04:53 97.8 F 101 H 16 104/62 97 10/25/17 04:03 98.1 F 120 H 16 104/62 95 10/25/17 01:46 98.5 F 110 H 16 105/57 98 10/24/17 23:51 99.4 F 80 16 105/57 96 10/24/17 22:48 82 16 131/61 97 10/24/17 21:51 100.1 F H 89 16 176/79 96 Intake and Output 10/24/17 10/25/17 10/25/17 22:59 06:59 14:59 Intake Total 161.04 Balance 161.04 Intake: Intake, IV Titration 161.04 Amount Heparin Sodium,Porcine/ 161.04 D5w Pmx 25,000 unit In Dextrose/Water 1 500ml. bag @ 11.1 UNITS/KG/HR 20 .13 mls/hr IV .Q24H [facility] Rx#:[id number] Other: Weight 90.718 kg 90.71 kg GENERAL EXAM: Patient is alert and oriented and doesn't appear to be in any acute distress HEENT: Normocephalic. Normal reaction of pupils, equal size, normal range of extraocular motion. No erythema or exudates in the throat. NECK: No masses, no nuchal rigidity. CHEST: No chest wall deformity. LUNGS: Equal air entry with no crackles or wheeze. HEART: S1 and S2 normal with no audible mumurs or gallops. Regular rhythm, femorals equal on both sides.. ABDOMEN: No hepatosplenomegaly, normal bowel sounds, no guarding or rigidity. SKIN: No rashes CENTRAL NERVOUS SYSTEM: No focal deficits. EXTREMITIES: No cyanosis, clubbing or edema. Results 10/24/17 22:11 10/24/17 22:11 Cardiac Enzymes 10/24/17 10/24/17 10/25/17 Range/Units 22:11 22:11 04:47 AST 42 (17-59) U/L CK-MB (CK-2) 1.2 3.2 H* (0.0-2.4) ng/mL Troponin I 0.232 H* 0.286 H* (0.000-0.034) ng/mL 10/25/17 Range/Units 12:00 AST (17-59) U/L CK-MB (CK-2) 3.0 H* (0.0-2.4) ng/mL Troponin I 0.138 H* (0.000-0.034) ng/mL Coagulation 10/24/17 10/25/17 10/25/17 Range/Units 22:11 13:02 13:30 PT 16.3 H 16.7 H (9.0-12.0) sec APTT 29.5 45.8 H (22.0-30.0) sec Lipids 10/25/17 Range/Units 04:47 Triglycerides 106 (<150) mg/dL Cholesterol 113 (<200) mg/dL HDL Cholesterol 34 L (40-60) mg/dL CBC 10/24/17 Range/Units 22:11 WBC 14.7 H (3.8-10.6) k/uL RBC 4.61 (4.30-5.90) m/uL Hgb 13.1 (13.0-17.5) gm/dL Hct 39.0 (39.0-53.0) % Plt Count 191 (150-450) k/uL Comprehensive Metabolic Panel 10/24/17 Range/Units 22:11 Sodium 133 L (137-145) mmol/L Potassium 4.2 (3.5-5.1) mmol/L Chloride 99 (98-107) mmol/L Carbon Dioxide 20 L (22-30) mmol/L BUN 26 H (9-20) mg/dL Creatinine 1.42 H (0.66-1.25) mg/dL Glucose 187 H (74-99) mg/dL Calcium 8.5 (8.4-10.2) mg/dL AST 42 (17-59) U/L ALT 50 (21-72) U/L Alkaline Phosphatase 49 (38-126) U/L Total Protein 5.9 L (6.3-8.2) g/dL Albumin 3.5 (3.5-5.0) g/dL Current Medications Generic Name Dose Route Start Last Admin Trade Name Leeroy PRN Reason Stop Dose Admin Amlodipine Besylate 5 mg 10/25/17 14:45 Norvasc PO 10/25/17 14:46 ONCE STA Aspirin 325 mg 10/25/17 09:00 10/25/17 12:31 Aspirin PO 325 mg DAILY [facility] Administration Atenolol 25 mg 10/25/17 21:00 Tenormin PO BID [facility] Calcitriol 0.25 mcg 10/29/17 14:43 Rocaltrol PO TH [facility] Ceftriaxone Sodium 1,000 mg 10/25/17 21:00 Rocephin IVP HS [facility] Cholecalciferol 2,000 unit 10/26/17 09:00 Vitamin D3 PO DAILY [facility] Digoxin 125 mcg 10/26/17 09:00 Lanoxin PO DAILY [facility] Ergocalciferol 50,000 unit 10/29/17 14:43 Vitamin D2 PO TH [facility] Ferrous Sulfate 325 mg 10/25/17 16:00 Feosol PO TID [facility] Heparin Sodium/Dextrose 25,000 500 mls @ 20.13 mls/hr 10/25/17 00:15 00:21 unit/ IV Solution IV 11.1 units/kg/hr .Q24H [facility] 20.13 mls/hr Protocol Administration 11.1 UNITS/KG/HR Nitroglycerin 0.4 mg 10/24/17 23:58 Nitrostat SUBLINGUAL Q5M PRN Chest Pain Non-Formulary Medication 10 mg 10/25/17 21:00 Rosuvastatin Calcium [Crestor] PO HS [facility] Pantoprazole Sodium 40 mg 10/26/17 09:00 Protonix PO QAM [facility] Pioglitazone HCl 45 mg 10/26/17 09:00 Actos PO QAM [facility] Warfarin Sodium 5 mg 10/25/17 14:45 Coumadin PO SUTUTHSA [facility] Warfarin Sodium 7.5 mg 10/26/17 14:43 Coumadin PO MOWEFR [facility] Intake and Output 10/24/17 10/25/17 10/25/17 22:59 06:59 14:59 Intake Total 161.04 Balance 161.04 Intake: Intake, IV Titration 161.04 Amount Heparin Sodium,Porcine/ 161.04 D5w Pmx 25,000 unit In Dextrose/Water 1 500ml. bag @ 11.1 UNITS/KG/HR 20 .13 mls/hr IV .Q24H [facility] Rx#:[id number] Other: Weight 90.718 kg 90.71 kg Patient Weight 10/26/17 06:59 Weight 90.71 kg 10/24/17 22:11 10/24/17 22:11 EKG Interpretations (text) Sinus rhythm Assessment and Plan (1) Altered mental status Current Visit: Yes Status: Acute Code(s): R41.82 - ALTERED MENTAL STATUS, UNSPECIFIED SNOMED Code(s): 648543087 (2) Urinary tract infection Current Visit: Yes Status: Acute Code(s): N39.0 - URINARY TRACT INFECTION, SITE NOT SPECIFIED SNOMED Code(s): 99045455 (3) A-fib Current Visit: No Status: Acute Code(s): I48.91 - UNSPECIFIED ATRIAL FIBRILLATION SNOMED Code(s): 74634743 (4) COPD (chronic obstructive pulmonary disease) Current Visit: No Status: Acute Code(s): J44.9 - CHRONIC OBSTRUCTIVE PULMONARY DISEASE, UNSPECIFIED SNOMED Code(s): 35601008 (5) Diabetes Current Visit: No Status: Acute Code(s): E11.9 - TYPE 2 DIABETES MELLITUS WITHOUT COMPLICATIONS SNOMED Code(s): 86486753 (6) Troponin level elevated Current Visit: Yes Status: Acute Code(s): R74.8 - ABNORMAL LEVELS OF OTHER SERUM ENZYMES SNOMED Code(s): 645740874 Plan: We will continue with the treatment for UTI. The picture is not consistent with non-STEMI. I may get an echocardiogram to assess LV function. Further examination depend upon the clinical course
[2017-10-25] MEDS ORDERED: amLODIPine 5 MG TAB PO STA (14:56)
--- NOTE | 2017-10-25 16:24 | P.HPIM ---
History of Present Illness H&P Date: 10/25/17 Chief Complaint: Altered mental status changes Mr. Langston is a 81-year-old male with a past medical history of atrial fibrillation, diabetes mellitus, GERD, GI bleed history, hyperlipidemia, hypertension, CK 80 admitted to the hospital with a chief complaint of altered mental status changes for a few hours before coming to the emergency department. The patient states that he recently has been to [place] and came back couple of days back. Since then he has been having increased frequency of urination. He mentions that he has to use the restroom every 30-40 minutes and also reports decreased appetite for the past 2 days. Patient denies having any lower back pain no fever chills or rigors. Patient denies having any chest pain and difficulty in breathing. No orthopnea or PND. No abdominal pain nausea vomiting or diarrhea. In the ED the patient had labs drawn showing increased white cell count with the urine analysis positive for nitrates and WBCs. Patient's creatinine was also elevated at the time of admission. He was started on ceftriaxone and given IV fluids and later moved to the general medical floors. Patient also had mild elevation in troponins but most likely due to his acute kidney injury and demand ischemia. Today the patient is lying comfortably in the bed states that his mentation is back to his normal. But still complains of some urinary urgency and dysuria. Review of Systems REVIEW OF SYSTEMS: PSYCH: No anxiety or depression NEURO:No c/o weakness of the extremties, No facial droop, No speech abnormalities. VASCULAR: Peripheral nervous system within the normal limits no edema HEMATOLOGIC: No history of easy bleeding and bruising . No recent infections . RESPIRATORY: No cough, No SOB, No chest discomfort. IMMUNE: No infections INTEGUMENT: no rashes OPHTHALMOLOGIC: No blurry vision and no eye discharge CARDIAC: No chest pain , shortness of breath , paroxysmal nocturnal dyspnea MUSCULOSKELETAL : No Aches or pains in the joints or muscles. GI: No abdominal pain, Nausea or vomiting. No constipation or diarrhea. Past Medical History Past Medical History: Atrial Fibrillation, Diabetes Mellitus, GERD/Reflux, GI Bleed, Hyperlipidemia, Hypertension, Renal Disease Additional Past Medical History / Comment(s): ANtral ulcer per EGD. Other hx: episodes of epistaxis, chronic renal failure, iron deficiency anemia, vertigo. History of Any Multi-Drug Resistant Organisms: None Reported Past Surgical History: Appendectomy, Tonsillectomy Additional Past Surgical History / Comment(s): 07/23/15 EGD Past Anesthesia/Blood Transfusion Reactions: No Reported Reaction Additional Past Anesthesia/Blood Transfusion Reaction / Comment(s): Pt recently (last admission) received blood without reaction. Past Psychological History: No Psychological Hx Reported Additional Psychological History / Comment(s): claustrophobia. Smoking Status: Never smoker Past Alcohol Use History: Rare Past Drug Use History: None Reported - Past Family History Mother Family Medical History: Asthma, Congestive Heart Failure (CHF), COPD Father Additional Family Medical History / Comment(s): anerurysm between the heart and the lung Medications and Allergies Home Medications Medication Instructions Recorded Confirmed Type Rosuvastatin Calcium [Crestor] 10 mg PO HS 07/21/15 10/25/17 History Digoxin [Lanoxin] 125 mcg PO DAILY #30 tab 07/26/15 10/25/17 Rx Atenolol [Tenormin] 25 mg PO BID 10/01/15 10/25/17 History Deeth-3 Fatty Acids/Fish Oil [Fish 1 cap PO DAILY 10/01/15 10/25/17 History Oil 1,000 mg Softgel] Pioglitazone HCl [Actos] 45 mg PO QAM 10/01/15 10/25/17 History Cholecalciferol [Vitamin D3] 2,000 unit PO DAILY 10/02/16 10/25/17 History Ergocalciferol [Vitamin D2] 50,000 unit PO TH 10/02/16 10/25/17 History Ferrous Sulfate [Feosol] 325 mg PO TID 10/02/16 10/25/17 History Pantoprazole Sodium [Protonix] 40 mg PO QAM 10/02/16 10/25/17 History Warfarin Sodium [Warfarin Sodium] 5 mg PO SUTUTHSA 10/02/16 10/25/17 History Warfarin Sodium [Warfarin Sodium] 7.5 mg PO MOWEFR 10/02/16 10/25/17 History Calcitriol [Rocaltrol] 0.25 mcg PO TH 10/25/17 10/25/17 History Allergies Allergy/AdvReac Type Severity Reaction Status Date / Time chlorpheniramine Allergy Unknown Verified 10/25/17 11:58 [From Deconamine] Penicillins Allergy Unknown Verified 10/25/17 11:58 pseudoephedrine Allergy Unknown Verified 10/25/17 11:58 [From Deconamine] Physical Exam Vitals: Vital Signs Temp Pulse Pulse Resp BP BP Pulse Ox 10/25/17 13:30 97.6 F 89 18 177/81 92 L 10/25/17 12:20 97.8 F 85 18 179/80 98 10/25/17 07:36 80 18 160/78 96 10/25/17 06:46 98.0 F 80 16 181/80 98 10/25/17 04:53 97.8 F 101 H 16 104/62 97 10/25/17 04:03 98.1 F 120 H 16 104/62 95 10/25/17 01:46 98.5 F 110 H 16 105/57 98 10/24/17 23:51 99.4 F 80 16 105/57 96 10/24/17 22:48 82 16 131/61 97 10/24/17 21:51 100.1 F H 89 16 176/79 96 Intake and Output 10/25/17 10/25/17 10/25/17 06:59 14:59 22:59 Intake Total 161.04 301.95 Balance 161.04 301.95 Intake: Intake, IV Titration 161.04 301.95 Amount Heparin Sodium,Porcine/ 161.04 301.95 D5w Pmx 25,000 unit In Dextrose/Water 1 500ml. bag @ 11.1 UNITS/KG/HR 20 .13 mls/hr IV .Q24H [facility] Rx#:[id number] Other: Weight 90.71 kg GENERAL EXAM GEN. APPEARANCE: alert, in no apparent distress HEAD EXAM: atraumatic, normocephalic, normal inspection EYE EXAM: normal appearance, PERRL, EOMI. Absent: scleral icterus, conjunctival injection, periorbital swelling ENT EXAM: normal exam, mucous membranes moist RESPIRATORY EXAM: normal lung sounds bilaterally. Absent: respiratory distress , wheezes, rales, rhonchi, stridor CARDIOVASCULAR EXAM: regular rate, normal rhythm, normal heart sounds. Absent : systolic murmur, diastolic murmur, rubs, gallop, clicks GI/ABDOMINAL EXAM: soft, normal bowel sounds. Absent: distended, tenderness, guarding, rebound, rigid EXTREMITIES EXAM: normal inspection, full ROM, normal capillary refill. Absent : tenderness, pedal edema, joint swelling, calf tenderness NEUROLOGICAL EXAM: alert, oriented X3, no focal neurological deficits PSYCHIATRIC EXAM: normal affect, normal mood SKIN EXAM: warm, dry, intact, normal color. Absent: rash Results CBC & Chem 7: 10/24/17 22:11 10/24/17 22:11 Labs: Abnormal Lab Results - Last 24 Hours (Table) 10/24/17 10/24/17 10/24/17 Range/Units 21:54 22:11 22:11 WBC 14.7 H (3.8-10.6) k/uL Neutrophils # 13.2 H (1.3-7.7) k/uL Lymphocytes # 0.7 L (1.0-4.8) k/uL PT (9.0-12.0) sec INR (<1.2) APTT (22.0-30.0) sec Sodium (137-145) mmol/L Carbon Dioxide (22-30) mmol/L BUN (9-20) mg/dL Creatinine (0.66-1.25) mg/dL Glucose (74-99) mg/dL POC Glucose (mg/dL) 178 H (75-99) mg/dL Total Creatine Kinase 418 H (55-170) U/L CK-MB (CK-2) (0.0-2.4) ng/mL Troponin I 0.232 H* (0.000-0.034) ng/mL Total Protein (6.3-8.2) g/dL HDL Cholesterol (40-60) mg/dL Urine Protein (Negative) Urine Ketones (Negative) Urine Blood (Negative) Ur Leukocyte Esterase (Negative) Urine RBC (0-5) /hpf Urine WBC (0-5) /hpf Urine Mucus (None) /hpf 10/24/17 10/24/17 10/24/17 Range/Units 22:11 22:11 22:15 WBC (3.8-10.6) k/uL Neutrophils # (1.3-7.7) k/uL Lymphocytes # (1.0-4.8) k/uL PT 16.3 H (9.0-12.0) sec INR 1.8 H (<1.2) APTT (22.0-30.0) sec Sodium 133 L (137-145) mmol/L Carbon Dioxide 20 L (22-30) mmol/L BUN 26 H (9-20) mg/dL Creatinine 1.42 H (0.66-1.25) mg/dL Glucose 187 H (74-99) mg/dL POC Glucose (mg/dL) (75-99) mg/dL Total Creatine Kinase (55-170) U/L CK-MB (CK-2) (0.0-2.4) ng/mL Troponin I (0.000-0.034) ng/mL Total Protein 5.9 L (6.3-8.2) g/dL HDL Cholesterol (40-60) mg/dL Urine Protein 1+ H (Negative) Urine Ketones Trace H (Negative) Urine Blood Moderate H (Negative) Ur Leukocyte Esterase Moderate H (Negative) Urine RBC 19 H (0-5) /hpf Urine WBC 53 H (0-5) /hpf Urine Mucus Rare H (None) /hpf 10/25/17 10/25/17 10/25/17 Range/Units 04:47 04:47 12:00 WBC (3.8-10.6) k/uL Neutrophils # (1.3-7.7) k/uL Lymphocytes # (1.0-4.8) k/uL PT (9.0-12.0) sec INR (<1.2) APTT (22.0-30.0) sec Sodium (137-145) mmol/L Carbon Dioxide (22-30) mmol/L BUN (9-20) mg/dL Creatinine (0.66-1.25) mg/dL Glucose (74-99) mg/dL POC Glucose (mg/dL) (75-99) mg/dL Total Creatine Kinase 568 H 412 H (55-170) U/L CK-MB (CK-2) 3.2 H* 3.0 H* (0.0-2.4) ng/mL Troponin I 0.286 H* 0.138 H* (0.000-0.034) ng/mL Total Protein (6.3-8.2) g/dL HDL Cholesterol 34 L (40-60) mg/dL Urine Protein (Negative) Urine Ketones (Negative) Urine Blood (Negative) Ur Leukocyte Esterase (Negative) Urine RBC (0-5) /hpf Urine WBC (0-5) /hpf Urine Mucus (None) /hpf 10/25/17 10/25/17 Range/Units 13:02 13:30 WBC (3.8-10.6) k/uL Neutrophils # (1.3-7.7) k/uL Lymphocytes # (1.0-4.8) k/uL PT 16.7 H (9.0-12.0) sec INR 1.8 H (<1.2) APTT 45.8 H (22.0-30.0) sec Sodium (137-145) mmol/L Carbon Dioxide (22-30) mmol/L BUN (9-20) mg/dL Creatinine (0.66-1.25) mg/dL Glucose (74-99) mg/dL POC Glucose (mg/dL) (75-99) mg/dL Total Creatine Kinase (55-170) U/L CK-MB (CK-2) (0.0-2.4) ng/mL Troponin I (0.000-0.034) ng/mL Total Protein (6.3-8.2) g/dL HDL Cholesterol (40-60) mg/dL Urine Protein (Negative) Urine Ketones (Negative) Urine Blood (Negative) Ur Leukocyte Esterase (Negative) Urine RBC (0-5) /hpf Urine WBC (0-5) /hpf Urine Mucus (None) /hpf Thrombosis Risk Factor Assmnt - Choose All That Apply Any of the Below Risk Factors Present?: No Each Risk Factor Represents 3 Points: Age 75 years or older Other congenital or acquired thrombophilia - If yes, enter type in comment: No Thrombosis Risk Factor Assessment Total Risk Factor Score: 3 Thrombosis Risk Factor Assessment Level: Moderate Risk Assessment and Plan Assessment: ASSESSMENT Sepsis secondary to UTI Encephalopathy secondary to #1 Acute kidney injury secondary to prerenal causes-dehydration Atrial fibrillation Type 2 diabetes mellitus COPD Troponin elevation Subtherapeutic INR Plan: We'll continue the patient on IV fluids and ceftriaxone. Patient's mentation is back to normal. Will repeat CBC and CMP for tomorrow morning. We' ll follow PT/INR. Continue with the rest of his home medication regimen. Further recommendations to follow depending on the progress of the patient. The treatment plan was discussed with the patient and his family members the bedside in detail.
[2017-10-25 16:30] LABS: Glucose,Whole Blood 163 mg/dL (75-99)
[2017-10-25] MEDS: FERROUS SULFATE 325 MG TAB PO SCH ×2 (17:32→21:58)
[2017-10-25] MEDS: WARFARIN 5 MG TAB PO SCH (17:34)
[2017-10-25 20:47] LABS: Glucose,Whole Blood 188 mg/dL (75-99)
[2017-10-25] MEDS: cefTRIAXone IN SWFI 1,000 MG/10 ML SYRINGE IVP SCH (21:58)
[2017-10-25] MEDS: ATORVASTATIN 20 MG TAB PO SCH (21:58)
[2017-10-25] MEDS: ATENOLOL 25 MG TAB PO SCH (22:03)
[2017-10-26] MEDS: NITROGLYCERIN OINT 1 INCH/GM PACKET TOPICAL SCH (00:34)
[2017-10-26 06:21] LABS: Glucose,Whole Blood 193 mg/dL (75-99)
[2017-10-26] MEDS: INSULIN ASPART 100 UNIT/ML 1 ML 10 ML VIAL SQ SCH ×4 (06:44→20:59)
[2017-10-26] MEDS: PANTOPRAZOLE 40 MG TABLET PO SCH (06:44)
[2017-10-26 07:26] LABS: Basophils % (A) 0 %; Eosinophils % (A) 0 %; HCT 42.5 % (39.0-53.0); HGB 13.9 gm/dL (13.0-17.5); Lymphocytes # (A) 0.9 k/uL (1.0-4.8); Lymphocytes % (A) 5 %; MCH 28.4 pg (25.0-35.0); MCHC 32.8 g/dL (31.0-37.0); MCV 86.6 fL (80.0-100.0); Monocytes # (A) 1.1 k/uL (0-1.0); Monocytes % (A) 6 %; Neutrophils % (A) 87 %; Platelet Count 195 k/uL (150-450); RBC 4.91 m/uL (4.30-5.90); RDW 13.4 % (11.5-15.5); WBC 18.4 k/uL (3.8-10.6)
[2017-10-26 07:28] LABS: INR 1.8 (<1.2); Prothrombin Time 16.6 sec (9.0-12.0)
[2017-10-26 07:41] LABS: Calcium 8.8 mg/dL (8.4-10.2); Potassium 4.4 mmol/L (3.5-5.1)
[2017-10-26] MEDS: PIOGLITAZONE 45 MG TAB PO SCH (08:20)
[2017-10-26] MEDS: DIGOXIN 125 MCG TAB PO SCH (08:20)
[2017-10-26] MEDS: CHOLECALCIFEROL 1,000 UNIT TAB PO SCH (08:20)
[2017-10-26] MEDS: ATENOLOL 25 MG TAB PO SCH ×2 (08:20→20:58)
[2017-10-26] MEDS: ASPIRIN 325 MG TAB PO SCH (08:20)
[2017-10-26] MEDS: FERROUS SULFATE 325 MG TAB PO SCH ×3 (08:20→20:31)
[2017-10-26 11:21] LABS: Glucose,Whole Blood 264 mg/dL (75-99)
[2017-10-26 11:45] LABS: Hemoglobin A1C 8.4 % (4.0-6.0)
[2017-10-26 16:59] LABS: Glucose,Whole Blood 169 mg/dL (75-99)
--- NOTE | 2017-10-26 17:19 | P.PN ---
Subjective Progress Note Date: 10/26/17 Principal diagnosis: Sepsis Mr. Langston is a 81-year-old male with a past medical history of atrial fibrillation, diabetes mellitus, GERD, GI bleed history, hyperlipidemia, hypertension, CK 80 admitted to the hospital with a chief complaint of altered mental status changes for a few hours before coming to the emergency department. The patient states that he recently has been to [place] and came back couple of days back. Since then he has been having increased frequency of urination. He mentions that he has to use the restroom every 30-40 minutes and also reports decreased appetite for the past 2 days. Patient denies having any lower back pain no fever chills or rigors. Patient denies having any chest pain and difficulty in breathing. No orthopnea or PND. No abdominal pain nausea vomiting or diarrhea. In the ED the patient had labs drawn showing increased white cell count with the urine analysis positive for nitrates and WBCs. Patient's creatinine was also elevated at the time of admission. He was started on ceftriaxone and given IV fluids and later moved to the general medical floors. Patient also had mild elevation in troponins but most likely due to his acute kidney injury and demand ischemia. On 10/26/2017-as per the nursing staff report the patient was constipated and so was given prune juice this morning. After that patient had 3-4 runny bowel movements. Patient has been complaining of mild abdominal discomfort. His symptoms of urinary urgency of decreased. Review of systems ;Patient denies having any chest pain, cough. No fever chills or rigors. No nausea or vomiting. No focal weakness. Objective - Vital Signs Vital signs: Vital Signs Temp 98.8 F 10/26/17 16:00 Pulse 78 10/26/17 16:00 Resp 18 10/26/17 16:00 BP 134/60 10/26/17 16:00 Pulse Ox 96 10/26/17 16:00 Intake & Output 10/25/17 10/26/17 10/26/17 18:59 06:59 18:59 Intake Total 702.99 720 Output Total 200 Balance 702.99 -200 720 Weight 90.71 kg 96.6 kg Intake: Intake, IV Titration 462.99 Amount Heparin Sodium,Porcine/ 462.99 D5w Pmx 25,000 unit In Dextrose/Water 1 500ml. bag @ 11.1 UNITS/KG/HR 20 .13 mls/hr IV .Q24H [facility] Rx#:[id number] Oral 240 720 Output: Urine 200 Other: Voiding Method Toilet Toilet # Voids 1 - Exam GEN. APPEARANCE: alert, in no apparent distress HEAD EXAM: atraumatic, normocephalic, normal inspection EYE EXAM: normal appearance, PERRL, EOMI. Absent: scleral icterus, conjunctival injection, periorbital swelling ENT EXAM: normal exam, mucous membranes moist RESPIRATORY EXAM: normal lung sounds bilaterally. Absent: respiratory distress , wheezes, rales, rhonchi, stridor CARDIOVASCULAR EXAM: regular rate, normal rhythm, normal heart sounds. Absent : systolic murmur, diastolic murmur, rubs, gallop, clicks GI/ABDOMINAL EXAM: soft, normal bowel sounds. Absent: distended, tenderness, guarding, rebound, rigid EXTREMITIES EXAM: normal inspection, full ROM, normal capillary refill. Absent : tenderness, pedal edema, joint swelling, calf tenderness NEUROLOGICAL EXAM: alert, oriented X3, no focal neurological deficits PSYCHIATRIC EXAM: normal affect, normal mood SKIN EXAM: warm, dry, intact, normal color. Absent: rash - Labs CBC & Chem 7: 10/26/17 06:13 10/26/17 06:13 Labs: Abnormal Lab Results - Last 24 Hours (Table) 10/25/17 10/26/17 10/26/17 Range/Units 20:46 06:13 06:13 WBC 18.4 H (3.8-10.6) k/uL Neutrophils # 16.0 H (1.3-7.7) k/uL Lymphocytes # 0.9 L (1.0-4.8) k/uL Monocytes # 1.1 H (0-1.0) k/uL PT 16.6 H (9.0-12.0) sec INR 1.8 H (<1.2) Carbon Dioxide (22-30) mmol/L BUN (9-20) mg/dL Creatinine (0.66-1.25) mg/dL Glucose (74-99) mg/dL POC Glucose (mg/dL) 188 H (75-99) mg/dL Hemoglobin A1c (4.0-6.0) % 05/21/18 05/21/18 05/21/18 Range/Units 06:13 06:13 06:16 WBC (3.8-10.6) k/uL Neutrophils # (1.3-7.7) k/uL Lymphocytes # (1.0-4.8) k/uL Monocytes # (0-1.0) k/uL PT (9.0-12.0) sec INR (<1.2) Carbon Dioxide 20 L (22-30) mmol/L BUN 36 H (9-20) mg/dL Creatinine 2.40 H (0.66-1.25) mg/dL Glucose 196 H (74-99) mg/dL POC Glucose (mg/dL) 193 H (75-99) mg/dL Hemoglobin A1c 8.4 H (4.0-6.0) % 10/26/17 10/26/17 Range/Units 11:14 16:49 WBC (3.8-10.6) k/uL Neutrophils # (1.3-7.7) k/uL Lymphocytes # (1.0-4.8) k/uL Monocytes # (0-1.0) k/uL PT (9.0-12.0) sec INR (<1.2) Carbon Dioxide (22-30) mmol/L BUN (9-20) mg/dL Creatinine (0.66-1.25) mg/dL Glucose (74-99) mg/dL POC Glucose (mg/dL) 264 H 169 H (75-99) mg/dL Hemoglobin A1c (4.0-6.0) % Microbiology - Last 24 Hours (Table) 10/25/17 17:15 Urine Culture - Preliminary Urine,Voided Assessment and Plan Assessment: ASSESSMENT Sepsis secondary to UTI Encephalopathy secondary to #1 Acute kidney injury secondary to prerenal causes-dehydration Atrial fibrillation Type 2 diabetes mellitus COPD Troponin elevation Subtherapeutic INR Plan: We'll continue the patient on IV fluids and ceftriaxone. Patient's mentation is back to normal. Awaiting urine cultures- but these are done after he couple of doses of antibiotic. There is a slight uptrend of the WBC count we 'll repeat CBC for tomorrow morning. We'll follow PT/INR. Continue with the rest of his home medication regimen. Further recommendations to follow depending on the progress of the patient. The treatment plan was discussed with the patient at the bedside in detail.
[2017-10-26] MEDS ORDERED: WARFARIN 7.5 MG TAB PO SCH (18:00)
[2017-10-26 20:42] LABS: Glucose,Whole Blood 204 mg/dL (75-99)
[2017-10-26] MEDS: cefTRIAXone IN SWFI 1,000 MG/10 ML SYRINGE IVP SCH (20:56)
[2017-10-26] MEDS: ATORVASTATIN 20 MG TAB PO SCH (20:58)
[2017-10-27] MEDS: SODIUM CHLORIDE 0.9% 1,000 ML IV SCH ×4 (05:49→23:46)
[2017-10-27 07:19] LABS: Glucose,Whole Blood 178 mg/dL (75-99)
[2017-10-27] MEDS: PANTOPRAZOLE 40 MG TABLET PO SCH (08:38)
[2017-10-27] MEDS: ATENOLOL 25 MG TAB PO SCH ×2 (08:38→21:23)
[2017-10-27] MEDS: PIOGLITAZONE 45 MG TAB PO SCH (08:38)
[2017-10-27] MEDS: ASPIRIN 325 MG TAB PO SCH (08:38)
[2017-10-27] MEDS: CHOLECALCIFEROL 1,000 UNIT TAB PO SCH (08:38)
[2017-10-27] MEDS: FERROUS SULFATE 325 MG TAB PO SCH ×3 (08:38→21:23)
[2017-10-27] MEDS: INSULIN ASPART 100 UNIT/ML 1 ML 10 ML VIAL SQ SCH ×4 (08:38→21:23)
[2017-10-27] MEDS: DIGOXIN 125 MCG TAB PO SCH (08:38)
[2017-10-27 09:06] VITALS: RESP 16
[2017-10-27 09:58] LABS: Basophils % (A) 0 %; Eosinophils # (A) 0.3 k/uL (0-0.7); Eosinophils % (A) 3 %; HCT 37.2 % (39.0-53.0); HGB 12.4 gm/dL (13.0-17.5); Lymphocytes # (A) 0.8 k/uL (1.0-4.8); Lymphocytes % (A) 7 %; MCH 28.3 pg (25.0-35.0); MCHC 33.2 g/dL (31.0-37.0); MCV 85.2 fL (80.0-100.0); Mean Platelet Volume 7.2; Monocytes # (A) 0.9 k/uL (0-1.0); Monocytes % (A) 8 %; Neutrophils # (A) 8.9 k/uL (1.3-7.7); Neutrophils % (A) 80 %; Platelet Count 206 k/uL (150-450); RBC 4.37 m/uL (4.30-5.90); RDW 13.5 % (11.5-15.5); WBC 11.1 k/uL (3.8-10.6)
[2017-10-27 10:23] LABS: Calcium 8.1 mg/dL (8.4-10.2); Potassium 4.4 mmol/L (3.5-5.1)
[2017-10-27 11:49] LABS: Glucose,Whole Blood 188 mg/dL (75-99)
[2017-10-27 12:24] LABS: INR 2.1 (<1.2); Prothrombin Time 18.7 sec (9.0-12.0)
--- NOTE | 2017-10-27 12:36 | CDI ---
Last Revision, May 2017 Documentation Clarification Form Date: October 27, 2017 From: Suly Guillen RN Admit Date: 10/24/2017 11:58:00 PM Patient Name: Segundo Langston Visit Number: [id number] ATTENTION: The Clinical Documentation Specialists (CDI) and [facility] Coding Staff appreciate your assistance in clarifying documentation. Please respond to the clarification below the line at the bottom and electronically sign. The CDI & [facility] Coding staff will review the response and follow-up if needed. Please note: Queries are made part of the Legal Health Record. If you have any questions, please contact the author of this message via ITS. Dr. Myriam Michelle, Encephalopathy is documented in the PN 10/26 and the H&P 10/25. History/Risk factors: a fib, DM, GERD, GI bleed, Hyperlipidemia, HTN, Renal Disease, Iron deficiency anemia, vertigo Presented with Altered Mental Status, NSTEMI and UTI Clinical Indicators: Labs on admission: WBC 14.7, SOD 133, PT 16.3, INR 1.8, C02 20, BUN 26, CR 1.42, TOT CR KIN 418, TROP 0.232 - 0.286 - 0.138 CT Brain: Cerebral atrophy, sinusitis, no acute intracranial abnormality. UTI Treatment: Consults: Cardiology Monitor Labs IVP Rocephin Bolus x1 In your professional opinion, can you please clarify the specific type of encephalopathy, if known? Anoxic Encephalopathy Hypertensive Encephalopathy Metabolic Encephalopathy Other, please specify Unable to determine Please continue to document in your progress notes and discharge summary in order to capture severity of illness and risk of mortality. Include clinical findings that support your diagnosis. Metabolic Encephalopathy MTDD
[2017-10-27] MEDS: TAMSULOSIN 0.4 MG CAP.ER.24H PO SCH (13:42)
--- NOTE | 2017-10-27 14:57 | P.PN ---
Subjective Progress Note Date: 10/27/17 Progress note being dictated for Dr. Michelle. Sepsis Interval history:Mr. Langston is a 81-year-old male with a past medical history of atrial fibrillation, diabetes mellitus, GERD, GI bleed history, hyperlipidemia, hypertension, CK 80 admitted to the hospital with a chief complaint of altered mental status changes for a few hours before coming to the emergency department. The patient states that he recently has been to [place] and came back couple of days back. Since then he has been having increased frequency of urination. He mentions that he has to use the restroom every 30- 40 minutes and also reports decreased appetite for the past 2 days. Patient denies having any lower back pain no fever chills or rigors. Patient denies having any chest pain and difficulty in breathing. No orthopnea or PND. No abdominal pain nausea vomiting or diarrhea. In the ED the patient had labs drawn showing increased white cell count with the urine analysis positive for nitrates and WBCs. Patient's creatinine was also elevated at the time of admission. He was started on ceftriaxone and given IV fluids and later moved to the general medical floors. Patient also had mild elevation in troponins but most likely due to his acute kidney injury and demand ischemia. On 10/26/2017-as per the nursing staff report the patient was constipated and so was given prune juice this morning. After that patient had 3-4 runny bowel movements. Patient has been complaining of mild abdominal discomfort. His symptoms of urinary urgency of decreased. Review of systems ;Patient denies having any chest pain, cough. No fever chills or rigors. No nausea or vomiting. No focal weakness. 10/27/2017 Required straight cath 3 for urinary retention, Vickers catheter placed. Loose formed bowel movements. Digoxin level pending. INR 2.1. Maintained on gentle IV fluid hydration, Rocephin . Creatinine improving. Afebrile, T-max 100.4, WBC trending down. Denies chest pain, palpitations or increasing shortness of breath. Objective - Vital Signs Vital signs: Vital Signs Temp 98.4 F 10/27/17 05:36 Pulse 76 10/27/17 05:36 Resp 16 10/27/17 08:05 BP 116/57 10/27/17 05:36 Pulse Ox 97 10/27/17 05:36 Intake & Output 10/26/17 10/27/17 10/27/17 18:59 06:59 18:59 Intake Total 720 Output Total 900 Balance 720 -900 Intake: Oral 720 Output: Urine 900 Straight 900 Other: Voiding Method Toilet Urinal Urinal Indwelling Catheter Indwelling Catheter # Voids 2 - Exam GEN. APPEARANCE: alert, in no apparent distress HEAD EXAM: atraumatic, normocephalic, normal inspection EYE EXAM: normal appearance, PERRL, EOMI. Absent: scleral icterus, conjunctival injection, periorbital swelling ENT EXAM: normal exam, mucous membranes moist RESPIRATORY EXAM: normal lung sounds bilaterally. Absent: respiratory distress , wheezes, rales, rhonchi, stridor CARDIOVASCULAR EXAM: regular rate, normal rhythm, normal heart sounds. Absent : systolic murmur, diastolic murmur, rubs, gallop, clicks GI/ABDOMINAL EXAM: soft, normal bowel sounds. Absent: distended, tenderness, guarding, rebound, rigid EXTREMITIES EXAM: normal inspection, full ROM, normal capillary refill. Absent : tenderness, pedal edema, joint swelling, calf tenderness NEUROLOGICAL EXAM: alert, oriented X3, no focal neurological deficits PSYCHIATRIC EXAM: normal affect, normal mood SKIN EXAM: warm, dry, intact, normal color. Absent: rash - Labs CBC & Chem 7: 10/27/17 09:34 10/27/17 09:34 Labs: Abnormal Lab Results - Last 24 Hours (Table) 10/26/17 10/26/17 10/27/17 Range/Units 16:49 20:41 07:16 WBC (3.8-10.6) k/uL Hgb (13.0-17.5) gm/dL Hct (39.0-53.0) % Neutrophils # (1.3-7.7) k/uL Lymphocytes # (1.0-4.8) k/uL PT (9.0-12.0) sec INR (<1.2) Carbon Dioxide (22-30) mmol/L BUN (9-20) mg/dL Creatinine (0.66-1.25) mg/dL Glucose (74-99) mg/dL POC Glucose (mg/dL) 169 H 204 H 178 H (75-99) mg/dL Calcium (8.4-10.2) mg/dL 10/27/17 10/27/17 10/27/17 Range/Units 09:34 09:34 11:14 WBC 11.1 H (3.8-10.6) k/uL Hgb 12.4 L (13.0-17.5) gm/dL Hct 37.2 L (39.0-53.0) % Neutrophils # 8.9 H (1.3-7.7) k/uL Lymphocytes # 0.8 L (1.0-4.8) k/uL PT 18.7 H (9.0-12.0) sec INR 2.1 H (<1.2) Carbon Dioxide 19 L (22-30) mmol/L BUN 41 H (9-20) mg/dL Creatinine 1.60 H (0.66-1.25) mg/dL Glucose 224 H (74-99) mg/dL POC Glucose (mg/dL) (75-99) mg/dL Calcium 8.1 L (8.4-10.2) mg/dL 10/27/17 Range/Units 11:47 WBC (3.8-10.6) k/uL Hgb (13.0-17.5) gm/dL Hct (39.0-53.0) % Neutrophils # (1.3-7.7) k/uL Lymphocytes # (1.0-4.8) k/uL PT (9.0-12.0) sec INR (<1.2) Carbon Dioxide (22-30) mmol/L BUN (9-20) mg/dL Creatinine (0.66-1.25) mg/dL Glucose (74-99) mg/dL POC Glucose (mg/dL) 188 H (75-99) mg/dL Calcium (8.4-10.2) mg/dL Microbiology - Last 24 Hours (Table) 10/25/17 17:15 Urine Culture - Final Urine,Voided Assessment and Plan Assessment: Sepsis secondary to UTI Encephalopathy secondary to #1 Acute kidney injury secondary to prerenal causes-dehydration Atrial fibrillation Type 2 diabetes mellitus COPD Troponin elevation Subtherapeutic INR Plan: Continue on current medication regime ,monitoring and symptomatic treatment. Maintain gentle IV fluid hydration and antibiotics. Flomax added to med regime. Daily PT INRs. Close monitoring of renal function with repeat labs ordered for a.m. Last night patient had recurrent fever, T-max 100.4 , Blood cultures 2 ordered. The impression and plan of care has been dictated as directed. : I performed a history and examination of this patient, discussed the same with the dictator. I agree with the dictator's note ,documented as a scribe. Any additional findings or plans will be noted.
[2017-10-27 17:34] LABS: Glucose,Whole Blood 235 mg/dL (75-99)
[2017-10-27] MEDS: WARFARIN 5 MG TAB PO SCH (17:36)
[2017-10-27 20:49] LABS: Glucose,Whole Blood 177 mg/dL (75-99)
[2017-10-27] MEDS: cefTRIAXone IN SWFI 1,000 MG/10 ML SYRINGE IVP SCH (21:23)
[2017-10-27] MEDS: ATORVASTATIN 20 MG TAB PO SCH (21:23)
[2017-10-28 05:51] VITALS: BP 146/69; PULSE 75; TEMP 98.3
[2017-10-28 07:03] LABS: Glucose,Whole Blood 141 mg/dL (75-99)
[2017-10-28] MEDS: PANTOPRAZOLE 40 MG TABLET PO SCH (07:51)
[2017-10-28] MEDS: TAMSULOSIN 0.4 MG CAP.ER.24H PO SCH (07:51)
[2017-10-28] MEDS: FERROUS SULFATE 325 MG TAB PO SCH (07:51)
[2017-10-28] MEDS: ASPIRIN 325 MG TAB PO SCH (07:51)
[2017-10-28] MEDS: DIGOXIN 125 MCG TAB PO SCH (07:51)
[2017-10-28] MEDS: ATENOLOL 25 MG TAB PO SCH (07:51)
[2017-10-28] MEDS: PIOGLITAZONE 45 MG TAB PO SCH (07:51)
[2017-10-28] MEDS: CHOLECALCIFEROL 1,000 UNIT TAB PO SCH (07:52)
[2017-10-28] MEDS: INSULIN ASPART 100 UNIT/ML 1 ML 10 ML VIAL SQ SCH ×2 (07:52→12:14)
[2017-10-28 09:41] LABS: Basophils % (A) 0 %; Eosinophils # (A) 0.7 k/uL (0-0.7); Eosinophils % (A) 7 %; HCT 41.8 % (39.0-53.0); HGB 13.5 gm/dL (13.0-17.5); Lymphocytes # (A) 1.7 k/uL (1.0-4.8); Lymphocytes % (A) 15 %; MCH 27.7 pg (25.0-35.0); MCHC 32.4 g/dL (31.0-37.0); MCV 85.6 fL (80.0-100.0); Mean Platelet Volume 7.3; Monocytes # (A) 0.9 k/uL (0-1.0); Monocytes % (A) 8 %; Neutrophils # (A) 7.3 k/uL (1.3-7.7); Neutrophils % (A) 67 %; Platelet Count 295 k/uL (150-450); RBC 4.89 m/uL (4.30-5.90); RDW 13.5 % (11.5-15.5); WBC 10.9 k/uL (3.8-10.6)
[2017-10-28 09:48] LABS: INR 2.4 (<1.2); Prothrombin Time 21.9 sec (9.0-12.0)
[2017-10-28 09:51] LABS: Calcium 8.5 mg/dL (8.4-10.2); Potassium 4.5 mmol/L (3.5-5.1)
[2017-10-28 12:06] LABS: Glucose,Whole Blood 301 mg/dL (75-99)
[2017-10-28] MEDS: SODIUM CHLORIDE 0.9% 1,000 ML IV SCH (12:14)
--- NOTE | 2017-10-28 21:34 | DS ---
DISCHARGE SUMMARY DATE OF SERVICE: 10/28/2017. FINAL DIAGNOSES: 1. Urinary tract infection with sepsis present on admission. 2. Metabolic encephalopathy secondary to sepsis. 3. Urinary obstruction secondary to possibly benign prostatic hypertrophy on Vickers catheter. 4. Acute kidney injury prerenal with dehydration. 5. Atrial fibrillation. 6. Diabetes mellitus type 2. 7. Chronic obstructive pulmonary disease. 8. Subtherapeutic INR. 9. Troponin elevation. Undetermined origin. DISCHARGE DISPOSITION: The patient is being discharged in stable condition with guarded prognosis. Total time taken 35 minutes. HISTORY OF PRESENT ILLNESS: This 81-year-old gentleman admitted with possible UTI and sepsis. Treated with antibiotics. The patient improved significantly. Because of retention Vickers catheter has been inserted and the patient improved significantly. Recommend outpatient followup. On exam, vitals are stable. Cardiovascular: Abdomen soft. Nervous system: No focal deficits. DISCHARGE ADVICE AND MEDICATIONS: 1. Diet is cardiac diet. 2. Activity limited until follow up. 3. Follow up with Dr. Garcia in 2-3 days. 4. Follow up with urology as recommended. Medications will be as follows: 1. Tenormin 25 mg p.o. b.i.d. 2. Rocaltrol 0.5 mg p.o. . 3. Ceftin 500 mg p.o. b.i.d. for 5 days. 4. Vitamin D3 2000 daily. 5. Lanoxin 120 mcg p.o. daily. 6. Vitamin D2 50,000 p.o. . 7. Iron sulfate 320 mg p.o. t.i.d. 8. [place]-3 fatty acids p.o. daily. 9. Protonix 40 mg q.a.m. 10.Actos 45 mg q.a.m. 11.Crestor 10 mg q.h.s. 12.Flomax 0.4 mg daily. 13.Coumadin 5 mg p.o. daily. Monitor PT/INR, CBC closely in the outpatient setting. Once again, the patient is being discharged in stable condition with guarded prognosis. MMODL / IJN: [id number] /
[2017-10-29] MEDS ORDERED: CALCITRIOL 0.25 MCG CAP PO SCH (09:00)
[2017-10-29] MEDS ORDERED: ERGOCALCIFEROL 50,000 UNIT CAP PO SCH (12:00)
--- NOTE | 2017-11-02 09:42 | CDI ---
Last Revision, May 2017 Documentation Clarification Form Date: 11/02/17 From: Minda Milad Onelia Godoy, Invasive Manager Hours-8:30 am & 5 pm Stacey Admit Date: 10/24/2017 11:58:00 PM Patient Name: Segundo Langston Visit Number: [id number] Discharge Date: 10/2317 ATTENTION: The Clinical Documentation Specialists (CDI) and [facility] Coding Staff appreciate your assistance in clarifying documentation. Please respond to the clarification below the line at the bottom and electronically sign. The CDI & [facility] Coding staff will review the response and follow-up if needed. Please note: Queries are made part of the Legal Health Record. If you have any questions, please contact the author of this message via ITS. Dr. Myriam Michelle Chronic renal failure documented in H&P, consult and ED note. Current BUN: 26, 36, 41, 31 Current CR: 1.42, 2.40, 1.60, 1.38 Current GFR: 47, 25, 41, 48 In order to capture the severity of condition, please clarify if the condition signifies: CKD ruled out CKD Stage 1 (GFR > 90) CKD Stage 2 (GFR 60-89) CKD Stage 3 (GFR 30-59) CKD Stage 4 (GFR 15-29) CKD Stage 5 (GFR <15) ESRD Other, please specify Unable to determine Please continue to document in your progress notes and discharge summary in order to capture severity of illness and risk of mortality. Include clinical findings that support your diagnosis. CKD Stage 3 (GFR 30-59) MTDD
--- NOTE | 2017-11-02 09:50 | CDI ---
Last Revision, May 2017 Documentation Clarification Form Date: 11/02/17 From: Minda Milad Onelia Godoy, Electrician Control Equipment Hours-8:30 am & 5 pm MKeily Admit Date: 10/24/2017 11:58:00 PM Patient Name: Segundo Langston Visit Number: [id number] Discharge Date: 10/2317 ATTENTION: The Clinical Documentation Specialists (CDI) and [facility] Coding Staff appreciate your assistance in clarifying documentation. Please respond to the clarification below the line at the bottom and electronically sign. The CDI & [facility] Coding staff will review the response and follow-up if needed. Please note: Queries are made part of the Legal Health Record. If you have any questions, please contact the author of this message via ITS. Dr. Adalberto Camargo Atrial fibrillation is documented in the ED Note, Consult, H&P, PNs. History/Risk Factors: HTN, CKD, ARF, COPD EKG/telemetry: normal sinus rhythm Treatment: Coumadin In your professional opinion, can you please clarify the type of atrial fibrillation, if known? Chronic/Permanent Paroxysmal Persistent Other, please specify Unable to determine Please continue to document in your progress notes and discharge summary in order to capture severity of illness and risk of mortality. Include clinical findings that support your diagnosis. Pt has H/O persistent atrial fibrillation. MTDD
== END 2017-10-28 15:01 | disposition home health service (06) | DRG 871 ==
LOC: EC 21:47 → 6SEL 23:58 → 4MS4W 10-26 17:24
PROVIDERS: ADMIT Hospitalist; ATTEND Hospitalist
DX: A41.9 Sepsis, unspecified organism (principal); G93.41 Metabolic encephalopathy; N39.0 Urinary tract infection, site not specified; N17.9 Acute kidney failure, unspecified; N13.8 Other obstructive and reflux uropathy; I48.1 Persistent atrial fibrillation; E86.0 Dehydration; E11.22 Type 2 diabetes mellitus with diabetic chronic kidney disease; J44.9 Chronic obstructive pulmonary disease, unspecified; N18.3 Chronic kidney disease, stage 3 (moderate); I12.9 Hypertensive chronic kidney disease with stage 1 through stage 4 chronic kidney disease, or unspecified chronic kidney disease; N40.1 Benign prostatic hyperplasia with lower urinary tract symptoms; K21.9 Gastro-esophageal reflux disease without esophagitis; R33.8 Other retention of urine; N39.498 Other specified urinary incontinence; R35.0 Frequency of micturition; R39.15 Urgency of urination; E78.5 Hyperlipidemia, unspecified; D50.9 Iron deficiency anemia, unspecified; R77.9 Abnormality of plasma protein, unspecified; K59.00 Constipation, unspecified; R79.1 Abnormal coagulation profile; F40.240 Claustrophobia; Z79.01 Long term (current) use of anticoagulants; Z79.84 Long term (current) use of oral hypoglycemic drugs; Z79.899 Other long term (current) drug therapy; Z86.73 Personal history of transient ischemic attack (TIA), and cerebral infarction without residual deficits; Z87.11 Personal history of peptic ulcer disease; Z90.49 Acquired absence of other specified parts of digestive tract; Z88.0 Allergy status to penicillin; Z88.8 Allergy status to other drugs, medicaments and biological substances; Z82.5 Family history of asthma and other chronic lower respiratory diseases; Z82.49 Family history of ischemic heart disease and other diseases of the circulatory system
CPT/HCPCS: 36415; 70450; 71046; 80048; 80053; 80061; 80162; 80306; 81001; 82550; 82553; 83036; 84484; 85025; 85610; 85730; 87040; 87086; 87502; 93005; 96361; 96365; 96366; 96375; 96376; 99285

== ENCOUNTER 2018-02-22 20:40 | Emergency (ER) | payer MEDICARE, BC ==
[2018-02-22 20:53] VITALS: BP 184/71; PULSE 63; RESP 20; TEMP 98.3
--- NOTE | 2018-02-22 21:37 | ED ---
Skin/Abscess/FB HPI - General Source: patient, family, RN notes reviewed Mode of arrival: ambulatory Limitations: no limitations <James Matos - Last Filed: 02/22/18 21:33> <Renetta Juan - Last Filed: 02/23/18 08:01> - General Chief complaint: Skin/Abscess/Foreign Body Stated complaint: yellow jacket stings Time Seen by Provider: 02/22/18 21:17 - History of Present Illness Initial comments: 82-year-old male present emergency from chief complaint of multiple bee stings. Patient states his happened approximately 2 hours ago while pressure tugging. Patient states that he was stung multiple times in his ears bilaterally, right arm and right ankle region. Patient did take Benadryl prior arrival he states he has no difficulty swallowing, difficulty breathing. He states the areas just are painful. He did play some calamine lotion on a few of the bee stings. Patient states that his never had any severe reactions in the past. ( James Matos) - Related Data Home Medications Medication Instructions Recorded Confirmed Rosuvastatin Calcium [Crestor] 10 mg PO HS 07/21/15 02/22/18 Atenolol [Tenormin] 25 mg PO BID 10/01/15 02/22/18 [place]-3 Fatty Acids/Fish Oil [Fish 1 cap PO DAILY 10/01/15 02/22/18 Oil 1,000 mg Softgel] Pioglitazone HCl [Actos] 45 mg PO QAM 10/01/15 02/22/18 Cholecalciferol [Vitamin D3] 2,000 unit PO DAILY 10/02/16 02/22/18 Ergocalciferol [Vitamin D2 50,000 unit PO TH 10/02/16 02/22/18 (DRISDOL)] Ferrous Sulfate [Iron (65 MG 325 mg PO TID 10/02/16 02/22/18 Elemental)] Pantoprazole Sodium [Protonix] 40 mg PO QAM 10/02/16 02/22/18 Calcitriol [Rocaltrol] 0.25 mcg PO TH 10/25/17 02/22/18 Previous Rx's Medication Instructions Recorded Digoxin [Lanoxin] 125 mcg PO DAILY #30 tab 07/26/15 Cefuroxime Axetil [Ceftin] 500 mg PO BID #10 tab 10/28/17 Tamsulosin [Flomax] 0.4 mg PO PC-BRKFST #30 cap.er.24h 10/28/17 Warfarin [Coumadin] 5 mg PO DAILY tab 10/28/17 Allergies Allergy/AdvReac Type Severity Reaction Status Date / Time chlorpheniramine Allergy Unknown Verified 02/22/18 20:53 [From Deconamine] Penicillins Allergy Unknown Verified 02/22/18 20:53 pseudoephedrine Allergy Unknown Verified 02/22/18 20:53 [From Deconamine] Review of Systems ROS Other: All systems not noted in ROS Statement are negative. <James Matos - Last Filed: 02/22/18 21:33> ROS Other: All systems not noted in ROS Statement are negative. <Renetta Juan - Last Filed: 02/23/18 08:01> ROS Statement: Those systems with pertinent positive or pertinent negative responses have been documented in the HPI. Past Medical History Past Medical History: Atrial Fibrillation, Diabetes Mellitus, GERD/Reflux, GI Bleed, Hyperlipidemia, Hypertension, Renal Disease Additional Past Medical History / Comment(s): ANtral ulcer per EGD. Other hx: episodes of epistaxis, chronic renal failure, iron deficiency anemia, vertigo. History of Any Multi-Drug Resistant Organisms: None Reported Past Surgical History: Appendectomy, Tonsillectomy Additional Past Surgical History / Comment(s): 07/23/15 EGD Past Anesthesia/Blood Transfusion Reactions: No Reported Reaction Additional Past Anesthesia/Blood Transfusion Reaction / Comment(s): Pt recently (last admission) received blood without reaction. Past Psychological History: No Psychological Hx Reported Smoking Status: Never smoker Past Alcohol Use History: Rare Past Drug Use History: None Reported - Past Family History Mother Family Medical History: Asthma, Congestive Heart Failure (CHF), COPD Father Additional Family Medical History / Comment(s): anerurysm between the heart and the lung <James Matos - Last Filed: 02/22/18 21:33> General Exam Limitations: no limitations General appearance: alert, in no apparent distress Head exam: Present: atraumatic, normocephalic, normal inspection Eye exam: Present: normal appearance, PERRL, EOMI. Absent: scleral icterus, conjunctival injection, periorbital swelling ENT exam: Present: normal exam, normal oropharynx, mucous membranes moist, TM's normal bilaterally, normal external ear exam Neck exam: Present: normal inspection, full ROM. Absent: tenderness, meningismus, lymphadenopathy Respiratory exam: Present: normal lung sounds bilaterally. Absent: respiratory distress, wheezes, rales, rhonchi, stridor Cardiovascular Exam: Present: regular rate, normal rhythm, normal heart sounds. Absent: systolic murmur, diastolic murmur, rubs, gallop, clicks Skin exam: Present: warm, dry, intact, normal color. Absent: rash <James Matos - Last Filed: 02/22/18 21:33> Vital Signs 02/22/18 20:48 Temperature 98.3 F Pulse Rate 63 Respiratory 20 Rate Blood Pressure 184/71 O2 Sat by Pulse 98 Oximetry Medical Decision Making <James Matos - Last Filed: 02/22/18 21:33> <Renetta Juan - Last Filed: 02/23/18 08:01> - Medical Decision Making 82-year-old male presented for multiple reasons. Patient only has localized reaction and symptoms have been present for several hours. He does have Benadryl that he took prior arrival. Patient will continue Benadryl every 6 hours and return for any worsening symptoms. (James Matos) I was available for consultation in the emergency department. The history and physical exam were done by the midlevel provider. I was consulted for this patient's care. I reviewed the case with the midlevel provider and based on their presentation of the patient, I agree with the assessment, medical decision making and plan of care as documented. (Renetta Juan) Disposition Is patient prescribed a controlled substance at d/c from ED?: No Time of Disposition: 21:37 <James Matos - Last Filed: 02/22/18 21:33> <Renetta Juan - Last Filed: 02/23/18 08:01> Clinical Impression: Bee sting Disposition: HOME SELF-CARE Condition: Stable Instructions: Insect Bite or Sting (ED) Additional Instructions: Please return to the Emergency Department if symptoms worsen or any other concerns. Referrals: Mera Garcia MD [Primary Care Provider] - 1-2 days
== END 2018-02-22 21:45 | disposition home or self-care (01) ==
LOC: EC 20:40
DX: T63.441A Toxic effect of venom of bees, accidental (unintentional), initial encounter (principal); E78.5 Hyperlipidemia, unspecified; I10 Essential (primary) hypertension; K21.9 Gastro-esophageal reflux disease without esophagitis; D50.9 Iron deficiency anemia, unspecified; Z88.0 Allergy status to penicillin; Z88.8 Allergy status to other drugs, medicaments and biological substances; Z79.899 Other long term (current) drug therapy
CPT/HCPCS: 99282

== ENCOUNTER → 2018-05-21 | Outpatient (CLI) | payer MEDICARE, BC ==
--- NOTE | 2018-05-21 16:26 | CT ---
EXAMINATION TYPE: CT abdomen wo/w con DATE OF EXAM: 05/21/2018 COMPARISON: CT abdomen pelvis 08/02/2015 HISTORY: Renal mass CT DLP: 1432 mGycm Automated exposure control for dose reduction was used. TECHNIQUE: Helical acquisition of images was performed from the lung bases through the top of iliac crest to include entire abdomen. CONTRAST: Performed with Oral Contrast and without and with IV Contrast, patient injected with 80 mL of Isovue 300. FINDINGS: Coronary artery calcifications are present. LUNG BASES: No significant abnormality is appreciated. LIVER/GB: Liver shows low attenuation. Gallstone present within the gallbladder as on prior. Liver sh ows low attenuation compatible with hepatic steatosis. Cyst is present within the left lobe of the li chastity lateral segment as on prior. PANCREAS: No significant abnormality is seen. SPLEEN: Punctate calcifications within the spleen are again noted. ADRENALS: No significant abnormality is seen. KIDNEYS: Small exophytic dense cyst is present at the midpole level of the left kidney as on prior ex am, subcentimeter in size, cortical cysts are present bilaterally as on previous exam. BOWEL: No significant abnormality is seen. Possible prior appendectomy, surgical clips present at th e base of the cecum as on prior LYMPH NODES: No significant abnormality is appreciated. OSSEOUS STRUCTURES: No significant abnormality is seen. FREE AIR: No Free Air visible ASCITES: None visible. RETROPERITONEAL ADENOPATHY: No Retroperitoneal Adenopathy visible. OTHER: There is marked facet arthropathy, degenerative disc change in the lower lumbar spine, there m ay be spinal stenosis present. IMPRESSION: PROBABLE PROTEINACEOUS CYST IS SUBCENTIMETER IN SIZE, BILATERAL CORTICAL CYSTS WITHIN THE KIDNEYS ARE NOT SIGNIFICANTLY CHANGED. CHOLELITHIASIS.
== END ==
LOC: RADCTMAIN 13:47
PROVIDERS: ATTEND Urology
DX: K80.20 Calculus of gallbladder without cholecystitis without obstruction (principal); Z88.0 Allergy status to penicillin; Z88.8 Allergy status to other drugs, medicaments and biological substances
CPT/HCPCS: 82565; 84520; 74170; 36415; Q9967

== ENCOUNTER → 2019-05-17 | Outpatient (CLI) | payer MEDICARE, BC ==
--- NOTE | 2019-05-17 15:50 | CT ---
EXAMINATION TYPE: CT abdomen wo con DATE OF EXAM: 05/17/2019 COMPARISON: 05/21/2018 and 08/02/2015 HISTORY: f/u renal cysts CT DLP: 332.9 mGycm Automated exposure control for dose reduction was used. TECHNIQUE: Helical acquisition of images was performed from the lung bases through the top of iliac crest to include entire abdomen. CONTRAST: Performed without Oral Contrast and without IV contrast. FINDINGS: Patient motion artifact somewhat limits evaluation. LUNG BASES: Linear calcifications are partially visualized. Lung bases are well aerated. LIVER/GB: Unremarkable unenhanced morphology of the liver. There is a left hepatic lobe 2.0 cm cyst. A calculus in the gallbladder neck measures 1.2 cm. This is unchanged from the prior. PANCREAS: No significant abnormality is seen. SPLEEN: Benign granulomatous the spleen. ADRENALS: No significant abnormality is seen. KIDNEYS: The previously seen hyperdense left midpole renal lesion measuring 5 mm appears less dense o n today's examination but unchanged in size. This is also unchanged in size from the prior 08/02/2015. Decrease density may be related to the motion artifact Partially exophytic right 2.2 cm benign renal cyst is seen from the superior pole. The 2 small to accurately characterize left lower pole renal le yazmin is not seen on today's examination and seen on the prior with contrast. BOWEL: Stomach is nondistended giving the appearance of diffuse rugal fold thickening. Index is surg ically absent. Mild degree colonic fecal stasis. No dilated large or small bowel. LYMPH NODES: No significant abnormality is appreciated. OSSEOUS STRUCTURES: Advanced degenerative disc disease of the spine and grade 1 anterolisthesis of L 4 on L5 that is likely on a degenerative basis due to facet hypertrophy. FREE AIR: No free air is visualized. IMPRESSION: 1. THERE IS MOTION ARTIFACT PARTIALLY LIMITING THE EXAM HOWEVER THE SUBCENTIMETER HYPERDENSE LEFT GISSELL AL LESION APPEARS UNCHANGED FROM THE PRIOR EXAMS DATING BACK TO 08/02/2015 AND THEREFORE RELATES TO A BENIGN PROTEINACEOUS OR HEMORRHAGIC CYST. ADDITIONAL RIGHT RENAL CYST IS FLUID ATTENUATED. THE KNOWN LEFT LOWER POLE RENAL LESION IS NOT SEEN WITHOUT CONTRAST IT IS SUBCENTIMETER. 1. POOR DISTENTION OF THE STOMACH CONTAINING THE APPEARANCE OF DIFFUSE RUGAL FOLD THICKENING. THIS LI GODFREY RELATES TO INCOMPLETE DISTENTION ALTHOUGH CORRELATION WITH ANY SYMPTOMS OF GASTRITIS WOULD BE RE COMMENDED.
== END | disposition home or self-care (01) ==
LOC: RADCTMAIN 14:30
PROVIDERS: ATTEND Urology
DX: N28.1 Cyst of kidney, acquired (principal); K31.89 Other diseases of stomach and duodenum; Z88.0 Allergy status to penicillin; Z88.8 Allergy status to other drugs, medicaments and biological substances
CPT/HCPCS: 74150

== ENCOUNTER 2020-08-20 20:40 | Emergency (ER) | payer MEDICARE, BC ==
[2020-08-20] MEDS ORDERED: ONDANSETRON 4 MG/2 ML VIAL IVP STA (21:09)
[2020-08-20] MEDS ORDERED: SODIUM CHLORIDE 0.9% 1,000 ML IV STA (21:09)
--- NOTE | 2020-08-20 21:14 | ED ---
Nausea/Vomiting/Diarrhea HPI - General Chief complaint: Nausea/Vomiting/Diarrhea Stated complaint: Diarrhea,SOB Cough Time Seen by Provider: 08/20/20 20:56 Source: patient, RN notes reviewed Mode of arrival: wheelchair Limitations: no limitations - History of Present Illness Initial comments: Patient is an 84-year-old male that presents to the emergency department complaining of a three-day history of nausea and diarrhea. He noted that he got his Covid vaccine on and then he noticed that he lost his appetite became nauseous and was having diarrhea after eating small amounts of food. He noted that he did follow up with Dr. Garcia last Thursday before his vaccine and she instructed to drink plenty of water. Patient was in no apparent distress or pain while sitting up in bed during exam and interview. He denied any pain. He noted that he wanted to come in and get evaluated due to the continued nausea and diarrhea and some weakness due to not eating or drinking. He denied any chest pain shortness of breath headache vomiting, the patient fever fatigue chills. - Related Data Home Medications Medication Instructions Recorded Confirmed Rosuvastatin Calcium [Crestor] 10 mg PO HS 07/21/15 08/20/20 Atenolol [Tenormin] 25 mg PO BID 10/01/15 08/20/20 [place]-3 Fatty Acids/Fish Oil [Fish 1 cap PO DAILY 10/01/15 08/20/20 Oil 1,000 mg Softgel] Pioglitazone HCl [Actos] 45 mg PO DAILY 10/01/15 08/20/20 Cholecalciferol [Vitamin D3 (25 2,000 unit PO DAILY 10/02/16 08/20/20 Mcg = 1000 Iu)] Ferrous Sulfate [Iron (65 MG 325 mg PO TID 10/02/16 08/20/20 Elemental)] Pantoprazole Sodium [Protonix] 40 mg PO DAILY 10/02/16 08/20/20 calcitrioL [Rocaltrol] 0.25 mcg PO MOTH 10/25/17 08/20/20 Ascorbic Acid [Vitamin C] 500 mg PO DAILY 08/20/20 08/20/20 Cinnamon Bark [Cinnamon] 500 mg PO DAILY 08/20/20 08/20/20 Tamsulosin [Flomax] 0.4 mg PO DAILY 08/20/20 08/20/20 Ubidecarenone [Co Q-10] 100 mg PO DAILY 08/20/20 08/20/20 Previous Rx's Medication Instructions Recorded Digoxin [Lanoxin] 125 mcg PO DAILY #30 tab 07/26/15 Warfarin [Coumadin] 5 mg PO DAILY tab 10/28/17 Allergies Allergy/AdvReac Type Severity Reaction Status Date / Time chlorpheniramine Allergy Unknown Verified 08/20/20 21:32 [From Deconamine] Penicillins Allergy Unknown Verified 08/20/20 21:32 pseudoephedrine Allergy Unknown Verified 08/20/20 21:32 [From Deconamine] Review of Systems ROS Statement: Those systems with pertinent positive or pertinent negative responses have been documented in the HPI. ROS Other: All systems not noted in ROS Statement are negative. Past Medical History Past Medical History: Atrial Fibrillation, Diabetes Mellitus, GERD/Reflux, GI Bleed, Hyperlipidemia, Hypertension, Renal Disease Additional Past Medical History / Comment(s): ANtral ulcer per EGD. Other hx: episodes of epistaxis, chronic renal failure, iron deficiency anemia, vertigo. History of Any Multi-Drug Resistant Organisms: None Reported Past Surgical History: Appendectomy, Tonsillectomy Additional Past Surgical History / Comment(s): 07/23/15 EGD Past Anesthesia/Blood Transfusion Reactions: No Reported Reaction Additional Past Anesthesia/Blood Transfusion Reaction / Comment(s): Pt recently (last admission) received blood without reaction. Past Psychological History: No Psychological Hx Reported Smoking Status: Never smoker Past Alcohol Use History: Rare Past Drug Use History: None Reported - Past Family History Mother Family Medical History: Asthma, Congestive Heart Failure (CHF), COPD Father Additional Family Medical History / Comment(s): anerurysm between the heart and the lung General Exam Limitations: no limitations General appearance: alert, in no apparent distress Head exam: Present: atraumatic, normocephalic, normal inspection Eye exam: Present: normal appearance, PERRL, EOMI. Absent: scleral icterus, conjunctival injection, periorbital swelling ENT exam: Present: normal exam, mucous membranes moist Neck exam: Present: normal inspection. Absent: tenderness, meningismus, l ymphadenopathy Respiratory exam: Present: normal lung sounds bilaterally. Absent: respiratory distress, wheezes, rales, rhonchi, stridor Cardiovascular Exam: Present: regular rate, normal rhythm, normal heart sounds. Absent: systolic murmur, diastolic murmur, rubs, gallop, clicks GI/Abdominal exam: Present: soft, normal bowel sounds. Absent: distended, tenderness, guarding, rebound, rigid Extremities exam: Present: normal inspection, full ROM, normal capillary refill. Absent: tenderness, pedal edema, joint swelling, calf tenderness Back exam: Present: normal inspection Neurological exam: Present: alert, oriented X3, CN II-XII intact Psychiatric exam: Present: normal affect, normal mood Skin exam: Present: warm, dry, intact, normal color. Absent: rash Course Vital Signs 08/20/20 20:43 Temperature 97.9 F Pulse Rate 86 Respiratory 20 Rate Blood Pressure 134/77 O2 Sat by Pulse 96 Oximetry Medical Decision Making - Medical Decision Making 84-year-old male complaining of nausea with diarrhea, mild weakness. Labs, 1 L normal saline, 4 mg Zofran, KUB ordered. KUB negative for any acute process. Case discussed with Dr. Obrien, patient to discharge home with conservative management. - Lab Data Result diagrams: 08/20/20 21:47 08/20/20 21:47 Lab Results 08/20/20 08/20/20 08/20/20 Range/Units 21:47 21:47 22:05 WBC 8.0 (3.8-10.6) k/uL RBC 4.86 (4.30-5.90) m/uL Hgb 14.1 (13.0-17.5) gm/dL Hct 41.9 (39.0-53.0) % MCV 86.1 (80.0-100.0) fL MCH 29.0 (25.0-35.0) pg MCHC 33.7 (31.0-37.0) g/dL RDW 12.4 (11.5-15.5) % Plt Count 274 (150-450) k/uL MPV 7.4 Neutrophils % 81 % Lymphocytes % 8 % Monocytes % 7 % Eosinophils % 2 % Basophils % 1 % Neutrophils # 6.4 (1.3-7.7) k/uL Lymphocytes # 0.6 L (1.0-4.8) k/uL Monocytes # 0.6 (0-1.0) k/uL Eosinophils # 0.1 (0-0.7) k/uL Basophils # 0.1 (0-0.2) k/uL Sodium 135 L (137-145) mmol/L Potassium 4.1 (3.5-5.1) mmol/L Chloride 98 (98-107) mmol/L Carbon Dioxide 26 (22-30) mmol/L Anion Gap 11 mmol/L BUN 20 (9-20) mg/dL Creatinine 1.19 (0.66-1.25) mg/dL Est GFR (CKD-EPI)AfAm 66 (>60 ml/min/1.73 sqM) Est GFR (CKD-EPI)NonAf 57 (>60 ml/min/1.73 sqM) Glucose 187 H (74-99) mg/dL Calcium 8.8 (8.4-10.2) mg/dL Total Bilirubin 0.9 (0.2-1.3) mg/dL AST 41 (17-59) U/L ALT 35 (4-49) U/L Alkaline Phosphatase 68 (38-126) U/L Total Protein 6.9 (6.3-8.2) g/dL Albumin 3.9 (3.5-5.0) g/dL Amylase 46 (30-110) U/L Lipase 315 H (23-300) U/L Urine Color Yellow Urine Appearance Clear (Clear) Urine pH 5.5 (5.0-8.0) Ur Specific Upper Tract 1.013 (1.001-1.035) Urine Protein Trace H (Negative) Urine Glucose (UA) Negative (Negative) Urine Ketones Negative (Negative) Urine Blood Negative (Negative) Urine Nitrite Negative (Negative) Urine Bilirubin Negative (Negative) Urine Urobilinogen 2.0 (<2.0) mg/dL Ur Leukocyte Esterase Negative (Negative) - Radiology Data Radiology results: report reviewed, image reviewed KUB: Nonacute abdomen. Calcified gallstone not changed compared to computed tomography scan of 05/17/2019. Disposition Clinical Impression: Gastroenteritis Disposition: HOME SELF-CARE Condition: Stable Instructions (If sedation given, give patient instructions): Acute Diarrhea (ED), Acute Nausea and Vomiting (ED) Additional Instructions: Please return to the Emergency Department if symptoms worsen or any other concerns. Continue to increase oral fluid intake, eat a bland diet they can be tolerated. Follow-up primary care in 2-5 days. Can take [id number] pain medication for symptomatic control. Illness should run its course in 5-7 days. Is patient prescribed a controlled substance at d/c from ED?: No Referrals: Mera Garcia MD [Primary Care Provider] - 1-2 days Time of Disposition: 22:34
[2020-08-20 22:05] LABS: Basophils # (A) 0.1 k/uL (0-0.2); Basophils % (A) 1 %; Eosinophils # (A) 0.1 k/uL (0-0.7); Eosinophils % (A) 2 %; HCT 41.9 % (39.0-53.0); HGB 14.1 gm/dL (13.0-17.5); Lymphocytes # (A) 0.6 k/uL (1.0-4.8); Lymphocytes % (A) 8 %; MCHC 33.7 g/dL (31.0-37.0); MCV 86.1 fL (80.0-100.0); Mean Platelet Volume 7.4; Monocytes # (A) 0.6 k/uL (0-1.0); Monocytes % (A) 7 %; Neutrophils # (A) 6.4 k/uL (1.3-7.7); Neutrophils % (A) 81 %; Platelet Count 274 k/uL (150-450); RBC 4.86 m/uL (4.30-5.90); RDW 12.4 % (11.5-15.5)
--- NOTE | 2020-08-20 22:18 | XR ---
EXAMINATION TYPE: XR KUB DATE OF EXAM: 08/20/2020 COMPARISON: 07/21/2015 HISTORY: Pain TECHNIQUE: Weakness and cough FINDINGS: 2 views upright show no sign of intestinal obstruction or pneumoperitoneum. Fecal pattern i s normal. There is 1 cm calcification over the right upper quadrant that could be calcified gallstone . Lung bases are clear of consolidation. IMPRESSION: Nonacute abdomen. Calcified gallstone not changed compared to CT scan of 05/17/2019.
[2020-08-20 22:23] LABS: Appearance,Urine Clear (Clear); Bilirubin,Urine Negative (Negative); Blood,Urine Negative (Negative); Color,Urine Yellow; Glucose,Urine (UA) Negative (Negative); Ketones,Urine Negative (Negative); Leukocyte Esterase,Urine Negative (Negative); Nitrite,Urine Negative (Negative); PH, Urine 5.5 (5.0-8.0); Protein,Urine Trace (Negative); Specific Gravity,Urine 1.013 (1.001-1.035)
[2020-08-20 22:30] LABS: Albumin 3.9 g/dL (3.5-5.0); Calcium 8.8 mg/dL (8.4-10.2); Potassium 4.1 mmol/L (3.5-5.1); Total Bilirubin 0.9 mg/dL (0.2-1.3); Total Protein 6.9 g/dL (6.3-8.2)
[2020-08-20 23:48] VITALS: BP 146/70; PULSE 77; RESP 18; TEMP 98.7
== END 2020-08-20 23:48 | disposition home or self-care (01) ==
LOC: EC 20:40
DX: K52.9 Noninfective gastroenteritis and colitis, unspecified (principal); I48.91 Unspecified atrial fibrillation; E11.9 Type 2 diabetes mellitus without complications; E78.5 Hyperlipidemia, unspecified; I10 Essential (primary) hypertension; Z90.49 Acquired absence of other specified parts of digestive tract; Z90.09 Acquired absence of other part of head and neck
CPT/HCPCS: 36415; 80053; 82150; 83690; 85025; 81003; 87635; 74018; 99284; 96374; 96361; J2405

== ENCOUNTER → 2020-11-21 | Outpatient (CLI) | payer MEDICARE, BC ==
--- NOTE | 2020-11-21 14:49 | CT ---
EXAMINATION TYPE: CT sinus wo con DATE OF EXAM: 11/21/2020 COMPARISON: CT brain October 24, 2017 HISTORY: Chronic sinusitis. Congestion for [address] DLP: 667 mGycm. Automated Exposure Control for Dose Reduction was Utilized. TECHNIQUE: CT scan of the sinuses is performed without contrast, axial images are obtained, coronal r eformatted images are also reviewed. FINDINGS: There is persistent heterogeneous density filling majority of larger caliber left sphenoid sinus that has surrounding wall thickening and sclerosis similar to prior. There is anterior opacity or soft tissue density with some central linear ossification in the anterior right sphenoid sinus wit h new patchy fluid posteriorly on current study. Remainder of the paranasal sinuses are clear. The ostiomeatal complexes patent bilaterally on coronal image 27. Nasal septum stable with slightly deviated to left of midline. Visualized portion of mastoid air cells show no abnormal opacification. The globes are intact bilate rally. Visualized portion of brain parenchyma shows diffuse cerebral atrophy over bilateral frontal lobes. IMPRESSION: Persistent sphenoid sinus disease. Suspect acute on chronic component currently.
== END | disposition home or self-care (01) ==
LOC: RADCTMAIN 14:16
PROVIDERS: ATTEND Otolaryngology
DX: J32.3 Chronic sphenoidal sinusitis (principal)
CPT/HCPCS: 70486

== ENCOUNTER 2022-02-13 15:03 | Emergency (ER) | payer MEDICARE, BC ==
[2022-02-13] MEDS ORDERED: SODIUM CHLORIDE 0.9% 1,000 ML IV STA (15:29)
--- NOTE | 2022-02-13 15:33 | ED ---
General Adult HPI - General Chief complaint: Weakness Stated complaint: Weakness Time Seen by Provider: 02/13/22 15:14 Source: patient, RN notes reviewed Mode of arrival: ambulatory Limitations: no limitations - History of Present Illness Initial comments: Patient is a pleasant 86-year-old male presenting to the emergency Department with fatigue and weakness. Onset of symptoms with the past 3 days or so. Patient is a very poor historian and answers questions extremely vague. Unclear patient has history of similar symptoms previously. Patient denies any confusion. Patient denies any isolated area of weakness. Patient has been tolerating oral intake. No vomiting or diarrhea. When questioned about difficulty in breathing patient states maybe. - Related Data Home Medications Medication Instructions Recorded Confirmed Rosuvastatin Calcium [Crestor] 10 mg PO HS 07/21/15 08/20/20 [place]-3 Fatty Acids/Fish Oil [Fish 1 cap PO DAILY 10/01/15 08/20/20 Oil 1,000 mg Softgel] Pioglitazone HCl [Actos] 45 mg PO DAILY 10/01/15 08/20/20 atenoloL [Tenormin] 25 mg PO BID 10/01/15 08/20/20 Cholecalciferol [Vitamin D3 (25 2,000 unit PO DAILY 10/02/16 08/20/20 Mcg = 1000 Iu)] Ferrous Sulfate [Iron (65 MG 325 mg PO TID 10/02/16 08/20/20 Elemental)] Pantoprazole Sodium [Protonix] 40 mg PO DAILY 10/02/16 08/20/20 calcitrioL [Rocaltrol] 0.25 mcg PO MOTH 10/25/17 08/20/20 Ascorbic Acid [Vitamin C] 500 mg PO DAILY 08/20/20 08/20/20 Cinnamon Bark [Cinnamon] 500 mg PO DAILY 08/20/20 08/20/20 Tamsulosin [Flomax] 0.4 mg PO DAILY 08/20/20 08/20/20 Ubidecarenone [Co Q-10] 100 mg PO DAILY 08/20/20 08/20/20 Previous Rx's Medication Instructions Recorded Digoxin [Lanoxin] 125 mcg PO DAILY #30 tab 07/26/15 Warfarin [Coumadin] 5 mg PO DAILY tab 10/28/17 Allergies Allergy/AdvReac Type Severity Reaction Status Date / Time chlorpheniramine Allergy Unknown Verified 02/13/22 15:10 [From Deconamine] Penicillins Allergy Unknown Verified 02/13/22 15:10 pseudoephedrine Allergy Unknown Verified 02/13/22 15:10 [From Deconamine] Review of Systems ROS Statement: Those systems with pertinent positive or pertinent negative responses have been documented in the HPI. ROS Other: All systems not noted in ROS Statement are negative. Constitutional: Denies: fever Eyes: Denies: eye pain ENT: Denies: ear pain Respiratory: Reports: as per HPI Cardiovascular: Denies: chest pain Endocrine: Reports: fatigue Gastrointestinal: Denies: abdominal pain Genitourinary: Denies: dysuria Musculoskeletal: Denies: back pain Skin: Denies: rash Neurological: Reports: as per HPI. Denies: headache, confusion Past Medical History Past Medical History: Atrial Fibrillation, Diabetes Mellitus, GERD/Reflux, GI Bleed, Hyperlipidemia, Hypertension, Renal Disease Additional Past Medical History / Comment(s): ANtral ulcer per EGD. Other hx: episodes of epistaxis, chronic renal failure, iron deficiency anemia, vertigo. History of Any Multi-Drug Resistant Organisms: None Reported Past Surgical History: Appendectomy, Tonsillectomy Additional Past Surgical History / Comment(s): 07/23/15 EGD Past Anesthesia/Blood Transfusion Reactions: No Reported Reaction Additional Past Anesthesia/Blood Transfusion Reaction / Comment(s): Pt recently (last admission) received blood without reaction. Past Psychological History: No Psychological Hx Reported Smoking Status: Never smoker Past Alcohol Use History: Rare Past Drug Use History: None Reported - Past Family History Mother Family Medical History: Asthma, Congestive Heart Failure (CHF), COPD Father Additional Family Medical History / Comment(s): anerurysm between the heart and the lung General Exam Limitations: no limitations General appearance: alert, in no apparent distress Head exam: Present: normocephalic Eye exam: Present: normal appearance, PERRL, EOMI ENT exam: Present: normal oropharynx Neck exam: Present: normal inspection. Absent: tenderness, meningismus Respiratory exam: Present: normal lung sounds bilaterally Cardiovascular Exam: Present: regular rate, irregular rhythm GI/Abdominal exam: Present: soft. Absent: tenderness Extremities exam: Present: normal inspection. Absent: pedal edema, calf tenderness Neurological exam: Present: alert, oriented X3, CN II-XII intact. Absent: motor sensory deficit Expanded Neurological exam: Present: protecting the airway Patient oriented to: Present: person, place, time Speech: Present: fluid speech Cranial nerves: EOM's Intact: Normal Sensory exam: Upper Extremity Light Touch: Normal, Lower Extremity Light Touch: Normal Motor strength exam: RUE: 5, LUE: 5, RLE: 5, LLE: 5 Eye Response: (4) open spontaneously Motor Response: (6) obeys commands Verbal Response: (5) oriented Psychiatric exam: Present: normal affect, normal mood Skin exam: Present: normal color Course Vital Signs 02/13/22 02/13/22 02/13/22 15:07 16:00 16:15 Temperature 97.8 F Pulse Rate 86 78 77 Respiratory 20 20 18 Rate Blood Pressure 163/76 176/78 167/142 O2 Sat by Pulse 95 98 96 Oximetry - Reevaluation(s) Reevaluation #1: 02/13/22 16:41 Patient reevaluated and updated. Patient denies any fall or head injury. 02/13/22 16:42 We are attempting to call [facility] for transfer. 02/13/22 17:16 Case was also discussed with Dr. Bridges who does feel patient is appropriate for transfer. 02/13/22 17:23 Again Attempting to get in touch with transfer team. 02/13/22 17:28 Case again discussed with Dr. Bridges who is considering patient may be a better candidate for [facility]. He will have them call. 02/13/22 17:38 Last blood pressure 166/71. Case discussed with practitioner Evgeny at [facility] who will get a bed for the patient. She does recommend low-dose Cardene EKG Findings - EKG Comments: EKG Findings:: Irregular supraventricular rhythm with a rate of 79. Consistent with patient's history of A. fib. QRS 87. QT 379. QTC 414. Left axis. PVC is present. No acute ST change. Inferior Q waves. Medical Decision Making - Lab Data Result diagrams: 02/13/22 15:41 02/13/22 15:41 Lab Results 02/13/22 02/13/22 02/13/22 Range/Units 15:41 15:41 15:41 WBC 6.9 (3.8-10.6) k/uL RBC 5.47 (4.30-5.90) m/uL Hgb 16.2 (13.0-17.5) gm/dL Hct 49.2 (39.0-53.0) % MCV 89.9 (80.0-100.0) fL MCH 29.5 (25.0-35.0) pg MCHC 32.9 (31.0-37.0) g/dL RDW 13.8 (11.5-15.5) % Plt Count 193 (150-450) k/uL MPV 6.8 Neutrophils % 68 % Lymphocytes % 18 % Monocytes % 9 % Eosinophils % 3 % Basophils % 1 % Neutrophils # 4.7 (1.3-7.7) k/uL Lymphocytes # 1.2 (1.0-4.8) k/uL Monocytes # 0.6 (0-1.0) k/uL Eosinophils # 0.2 (0-0.7) k/uL Basophils # 0.0 (0-0.2) k/uL PT 18.2 H (9.0-12.0) sec INR 1.8 H (<1.2) APTT 32.2 H (22.0-30.0) sec D-Dimer 0.20 (<0.60) mg/L FEU Sodium (137-145) mmol/L Potassium (3.5-5.1) mmol/L Chloride (98-107) mmol/L Carbon Dioxide (22-30) mmol/L Anion Gap mmol/L BUN (9-20) mg/dL Creatinine (0.66-1.25) mg/dL Est GFR (CKD-EPI)AfAm (>60 ml/min/1.73 sqM) Est GFR (CKD-EPI)NonAf (>60 ml/min/1.73 sqM) Glucose (74-99) mg/dL Plasma Lactic Acid Lv (0.7-2.0) mmol/L Calcium (8.4-10.2) mg/dL Phosphorus (2.5-4.5) mg/dL Magnesium (1.6-2.3) mg/dL Total Bilirubin (0.2-1.3) mg/dL AST (17-59) U/L ALT (4-49) U/L Alkaline Phosphatase (38-126) U/L Troponin I (0.000-0.034) ng/mL NT-Pro-B Natriuret Pep pg/mL Total Protein (6.3-8.2) g/dL Albumin (3.5-5.0) g/dL TSH (0.465-4.680) mIU/L Free T4 (0.78-2.19) ng/dL Free T3 pg/mL (2.8-5.3) pg/ml Urine Color Yellow Urine Appearance Clear (Clear) Urine pH 5.0 (5.0-8.0) Ur Specific Salter Path 1.031 (1.001-1.035) Urine Protein Negative (Negative) Urine Glucose (UA) 4+ H (Negative) Urine Ketones Negative (Negative) Urine Blood Negative (Negative) Urine Nitrite Negative (Negative) Urine Bilirubin Negative (Negative) Urine Urobilinogen <2.0 (<2.0) mg/dL Ur Leukocyte Esterase Negative (Negative) 02/13/22 02/13/22 02/13/22 Range/Units 15:41 15:41 15:41 WBC (3.8-10.6) k/uL RBC (4.30-5.90) m/uL Hgb (13.0-17.5) gm/dL Hct (39.0-53.0) % MCV (80.0-100.0) fL MCH (25.0-35.0) pg MCHC (31.0-37.0) g/dL RDW (11.5-15.5) % Plt Count (150-450) k/uL MPV Neutrophils % % Lymphocytes % % Monocytes % % Eosinophils % % Basophils % % Neutrophils # (1.3-7.7) k/uL Lymphocytes # (1.0-4.8) k/uL Monocytes # (0-1.0) k/uL Eosinophils # (0-0.7) k/uL Basophils # (0-0.2) k/uL PT (9.0-12.0) sec INR (<1.2) APTT (22.0-30.0) sec D-Dimer (<0.60) mg/L FEU Sodium 137 (137-145) mmol/L Potassium 4.3 (3.5-5.1) mmol/L Chloride 101 (98-107) mmol/L Carbon Dioxide 22 (22-30) mmol/L Anion Gap 14 mmol/L BUN 26 H (9-20) mg/dL Creatinine 1.02 (0.66-1.25) mg/dL Est GFR (CKD-EPI)AfAm 78 (>60 ml/min/1.73 sqM) Est GFR (CKD-EPI)NonAf 67 (>60 ml/min/1.73 sqM) Glucose 179 H (74-99) mg/dL Plasma Lactic Acid Lv 1.4 (0.7-2.0) mmol/L Calcium 9.1 (8.4-10.2) mg/dL Phosphorus 3.8 (2.5-4.5) mg/dL Magnesium 2.0 (1.6-2.3) mg/dL Total Bilirubin 0.6 (0.2-1.3) mg/dL AST 34 (17-59) U/L ALT 28 (4-49) U/L Alkaline Phosphatase 59 (38-126) U/L Troponin I <0.012 (0.000-0.034) ng/mL NT-Pro-B Natriuret Pep pg/mL Total Protein 6.8 (6.3-8.2) g/dL Albumin 4.2 (3.5-5.0) g/dL TSH 1.410 (0.465-4.680) mIU/L Free T4 1.40 (0.78-2.19) ng/dL Free T3 pg/mL 3.6 (2.8-5.3) pg/ml Urine Color Urine Appearance (Clear) Urine pH (5.0-8.0) Ur Specific [place] Path (1.001-1.035) Urine Protein (Negative) Urine Glucose (UA) (Negative) Urine Ketones (Negative) Urine Blood (Negative) Urine Nitrite (Negative) Urine Bilirubin (Negative) Urine Urobilinogen (<2.0) mg/dL Ur Leukocyte Esterase (Negative) 02/13/22 Range/Units 15:41 WBC (3.8-10.6) k/uL RBC (4.30-5.90) m/uL Hgb (13.0-17.5) gm/dL Hct (39.0-53.0) % MCV (80.0-100.0) fL MCH (25.0-35.0) pg MCHC (31.0-37.0) g/dL RDW (11.5-15.5) % Plt Count (150-450) k/uL MPV Neutrophils % % Lymphocytes % % Monocytes % % Eosinophils % % Basophils % % Neutrophils # (1.3-7.7) k/uL Lymphocytes # (1.0-4.8) k/uL Monocytes # (0-1.0) k/uL Eosinophils # (0-0.7) k/uL Basophils # (0-0.2) k/uL PT (9.0-12.0) sec INR (<1.2) APTT (22.0-30.0) sec D-Dimer (<0.60) mg/L FEU Sodium (137-145) mmol/L Potassium (3.5-5.1) mmol/L Chloride (98-107) mmol/L Carbon Dioxide (22-30) mmol/L Anion Gap mmol/L BUN (9-20) mg/dL Creatinine (0.66-1.25) mg/dL Est GFR (CKD-EPI)AfAm (>60 ml/min/1.73 sqM) Est GFR (CKD-EPI)NonAf (>60 ml/min/1.73 sqM) Glucose (74-99) mg/dL Plasma Lactic Acid Lv (0.7-2.0) mmol/L Calcium (8.4-10.2) mg/dL Phosphorus (2.5-4.5) mg/dL Magnesium (1.6-2.3) mg/dL Total Bilirubin (0.2-1.3) mg/dL AST (17-59) U/L ALT (4-49) U/L Alkaline Phosphatase (38-126) U/L Troponin I (0.000-0.034) ng/mL NT-Pro-B Natriuret Pep 662 pg/mL Total Protein (6.3-8.2) g/dL Albumin (3.5-5.0) g/dL TSH (0.465-4.680) mIU/L Free T4 (0.78-2.19) ng/dL Free T3 pg/mL (2.8-5.3) pg/ml Urine Color Urine Appearance (Clear) Urine pH (5.0-8.0) Ur Specific Sal[place] Path (1.001-1.035) Urine Protein (Negative) Urine Glucose (UA) (Negative) Urine Ketones (Negative) Urine Blood (Negative) Urine Nitrite (Negative) Urine Bilirubin (Negative) Urine Urobilinogen (<2.0) mg/dL Ur Leukocyte Esterase (Negative) - Radiology Data Radiology results: report reviewed (Discussed with radiologist, computed tomography scan of the brain shows acute on chronic subdural hemorrhage trupti ateral, larger on the right with 6 mm shift to the left. Up to 24 mm. Probable subdural hemorrhage right superior cerebellar region 3.7 x 0.8 cm.), image reviewed (Chest x-ray shows no acute process) Critical Care Time Critical Care Time: Yes Total Critical Care Time: 35 Disposition Clinical Impression: Subdural hematoma Disposition: OTHER INSTITUTION NOT DEFINED Condition: Serious Is patient prescribed a controlled substance at d/c from ED?: No Referrals: Mera Garcia MD [Primary Care Provider] - 1-2 days Time of Disposition: 17:38 - Out of Hospital Transfer - Req. Specs Out of Hospital Transfer - Requested Specifics: Neurological ICU
[2022-02-13 16:06] LABS: Appearance,Urine Clear (Clear); Basophils % (A) 1 %; Bilirubin,Urine Negative (Negative); Blood,Urine Negative (Negative); Color,Urine Yellow; Eosinophils # (A) 0.2 k/uL (0-0.7); Eosinophils % (A) 3 %; Glucose,Urine (UA) 4+ (Negative); HCT 49.2 % (39.0-53.0); HGB 16.2 gm/dL (13.0-17.5); Ketones,Urine Negative (Negative); Leukocyte Esterase,Urine Negative (Negative); Lymphocytes # (A) 1.2 k/uL (1.0-4.8); Lymphocytes % (A) 18 %; MCH 29.5 pg (25.0-35.0); MCHC 32.9 g/dL (31.0-37.0); MCV 89.9 fL (80.0-100.0); Mean Platelet Volume 6.8; Monocytes # (A) 0.6 k/uL (0-1.0); Monocytes % (A) 9 %; Neutrophils # (A) 4.7 k/uL (1.3-7.7); Neutrophils % (A) 68 %; Nitrite,Urine Negative (Negative); Platelet Count 193 k/uL (150-450); Protein,Urine Negative (Negative); RBC 5.47 m/uL (4.30-5.90); RDW 13.8 % (11.5-15.5); Specific Gravity,Urine 1.031 (1.001-1.035); Urobilinogen,Urine <2.0 mg/dL (<2.0); WBC 6.9 k/uL (3.8-10.6)
[2022-02-13 16:16] LABS: Albumin 4.2 g/dL (3.5-5.0); Calcium 9.1 mg/dL (8.4-10.2); Phosphorus 3.8 mg/dL (2.5-4.5); Potassium 4.3 mmol/L (3.5-5.1); Total Bilirubin 0.6 mg/dL (0.2-1.3); Total Protein 6.8 g/dL (6.3-8.2)
[2022-02-13 16:18] LABS: INR 1.8 (<1.2); Partial Thromboplastin Time 32.2 sec (22.0-30.0); Prothrombin Time 18.2 sec (9.0-12.0)
[2022-02-13 16:32] LABS: T4, Free (Free Thyroxine) 1.4 ng/dL (0.78-2.19)
--- NOTE | 2022-02-13 16:32 | CT ---
EXAMINATION TYPE: CT brain wo con DATE OF EXAM: 02/13/2022 HISTORY: weakness, ams CT DLP: 1121.4 mGycm. Automated Exposure Control for Dose Reduction was Utilized. TECHNIQUE: CT scan of the head is performed without contrast. COMPARISON: None at time of dictation . FINDINGS: Slightly greater density than CSF fluid is noted in the bilateral extra-axial spaces being more hyperdense dependently on the right. This measures up to 24 mm in thickness axial image 42 on th e right and 18 mm on the left. There is 6 mm midline shift to the left on axial image 26 level of se ptum pellucidum. Acute extra-axial probable subdural hemorrhage superior right cerebellar region axia l image 22 is noted measuring 3.7 x 0.8 cm coronal image 56. Evidence of prior paranasal sinus surger y. Globes are intact bilaterally. No hydrocephalus is seen. IMPRESSION: Acute extra-axial likely subdural hemorrhage right superior cerebellar level. Acute on ch ronic moderate-sized bilateral subdural hematomas slightly larger on the right with 6 mm midline shif t to the left. Preliminary results given to ordering ER physician via telephone at time of dictation.
--- NOTE | 2022-02-13 16:36 | XR ---
EXAMINATION TYPE: XR chest 2V DATE OF EXAM: 02/13/2022 COMPARISON: Chest x-ray 10/24/2017 is unavailable HISTORY: Weakness and altered mental status TECHNIQUE: Frontal and lateral views of the chest are obtained. FINDINGS: There is no focal air space opacity, pleural effusion, or pneumothorax seen. The cardiac silhouette size is within normal limits. The osseous structures are intact. Right hemidiaphragm is mildly elevated. There are overlying cardiac leads. The aorta is dense. IMPRESSION: No acute cardiopulmonary process.
[2022-02-13] MEDS ORDERED: PHYTONADIONE 10 MG in SODIUM CHLORIDE 0.9% 50 ML IVPB STA (16:42)
[2022-02-13] MEDS ORDERED: niCARdipine 20 MG in SODIUM CHLORIDE 0.9% 192 ML IV SCH (17:45)
[2022-02-13 19:39] VITALS: TEMP 97
[2022-02-13 19:41] VITALS: BP 147/73; PULSE 90; RESP 20
== END 2022-02-13 19:30 | disposition other institution (70) ==
LOC: EC 15:03
DX: S06.5X9A Traumatic subdural hemorrhage with loss of consciousness of unspecified duration, initial encounter (principal); K21.9 Gastro-esophageal reflux disease without esophagitis; Z79.83 Long term (current) use of bisphosphonates; E78.5 Hyperlipidemia, unspecified; I10 Essential (primary) hypertension; E11.9 Type 2 diabetes mellitus without complications; Z88.6 Allergy status to analgesic agent; Z88.0 Allergy status to penicillin; Z88.8 Allergy status to other drugs, medicaments and biological substances; X58.XXXA Exposure to other specified factors, initial encounter
CPT/HCPCS: 36415; 93005; 86900; 86901; 85379; 84439; 84481; 83880; 80053; 80162; 83605; 83735; 84100; 84443; 84484; 85025; 85610; 85730; 86850; 81003; 71046; 70450; 99291; 96365; 96367; 96361; P9059; J3430

== ENCOUNTER → 2022-04-23 | Outpatient (CLI) | payer MEDICARE, BC ==
--- NOTE | 2022-04-23 17:39 | CT ---
EXAMINATION TYPE: CT brain wo con CT DLP: 1147.0 mGycm, Automated exposure control for dose reduction was used. DATE OF EXAM: 04/23/2022 5:17 PM COMPARISON: 02/13/2022.. 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 Contrast used: None. Oral contrast used: None. FINDINGS: Brain: Extra-axial spaces: Bilateral subdural hemorrhage similar to as a higher density along the dura which could be related to more recent blood products versus calcification and dural thickening changes giv en its somewhat linear and diffuse appearance on the right. Overall the blood products have decreased since 02/13/2022. Now measuring up to 9 mm on the right in greatest thickness and 3 mm on the left. Ventricular system: Within normal limits Cerebral parenchyma: No acute intraparenchymal hemorrhage or mass effect. The mohan-white junction is well differentiated. Cerebellum: Unremarkable. Mass effect: No evidence of midline shift. Intracranial vasculature: unremarkable Soft tissues: Normal. Calvarium/osseous structures: No depressed skull fracture. Paranasal sinuses and mastoid air cells: Mild scattered paranasal sinus disease. Visualized orbits: Bilateral aphakia IMPRESSION: Subdural hemorrhage which has decreased in size from prior. There is somewhat increased density in a linear fashion along the right which could represent a more acute/subacute component versus thickenin g of the dura. There is no midline shift on today's exam.
== END | disposition home or self-care (01) ==
LOC: RADCTMAIN 16:51
PROVIDERS: ATTEND Neurological Surgery
DX: I62.03 Nontraumatic chronic subdural hemorrhage (principal)
CPT/HCPCS: 70450

== ENCOUNTER → 2022-07-08 | Outpatient (CLI) | payer MEDICARE, BC ==
--- NOTE | 2022-07-08 14:00 | CT ---
EXAMINATION TYPE: CT brain wo con CT DLP: 1150.50 mGycm, Automated exposure control for dose reduction was used. DATE OF EXAM: 07/08/2022 1:51 PM COMPARISON: Prior CT Brain from 04/23/2022, 02/13/2022. CLINICAL INDICATION:Male, 86 years old with history of I62.03, Nontraumatic chronic subdural hemorrha ge TECHNIQUE: Brain: Multiple axial CT images of the brain were obtained without IV contrast. Coronal and sagittal reformats reviewed. FINDINGS: Brain: Extra-axial spaces: Bilateral isodense subdural hematomas overlying both cerebral convexities. These are homogeneous in attenuation. The right measures up to 7 mm in thickness, previously 9 mm. The left measures up to 3 numbers in thickness, previously 4 mm. Ventricular system: Within normal limits Cerebral parenchyma: Cerebral atrophy. No acute intraparenchymal hemorrhage. The mohan-white junction is well differentiated. Scattered hypoattenuating areas are seen within the white matter. Cerebellum: Unremarkable. Mass effect: No evidence of midline shift. Intracranial vasculature: Atherosclerotic calcifications of the intracranial vessels. Soft tissues: Normal. Calvarium/osseous structures: No depressed skull fracture. Bilateral frontal tressa holes. Paranasal sinuses and mastoid air cells: Clear Visualized orbits: The lenses are surgically removed from the globes. IMPRESSION: Marginal decrease in bilateral subacute to chronic subdural hematomas overlying both cerebral convexi ties. No midline shift.
== END | disposition home or self-care (01) ==
LOC: RADCTMAIN 13:25
PROVIDERS: ATTEND Neurological Surgery
DX: I62.03 Nontraumatic chronic subdural hemorrhage (principal)
CPT/HCPCS: 70450

== ENCOUNTER → 2022-08-29 | Outpatient (CLI) | payer MEDICARE, BC ==
--- NOTE | 2022-08-29 08:17 | CT ---
EXAMINATION TYPE: CT brain wo con CT DLP: 1299 mGycm, Automated exposure control for dose reduction was used. DATE OF EXAM: 08/29/2022 8:01 AM COMPARISON: Multiple prior CT brain's with most recent 07/08/2022 CLINICAL INDICATION:Male, 86 years old with history of I62.03 chronic subdural hemorrhage, TECHNIQUE: Brain: Multiple axial CT images of the brain were obtained without IV contrast. Coronal and sagittal reformats reviewed. FINDINGS: Brain: Extra-axial spaces: Stable to marginally decreased size of bilateral isodense subdural hematomas over lying both cerebral convexities. These are again homogeneous in attenuation. The right measures up to 4 mm in thickness, previously 7 mm. The left measures up to 4 mm in thickness, previously 4 mm when measuring with similar technique. Ventricular system: Within normal limits Cerebral parenchyma: Cerebral atrophy. No acute intraparenchymal hemorrhage. The mohan-white junction is well differentiated. Scattered hypoattenuating areas are seen within the white matter. Cerebellum: Unremarkable. Mass effect: No evidence of midline shift. Intracranial vasculature: Atherosclerotic calcifications of the intracranial vessels. Soft tissues: Normal. Calvarium/osseous structures: No depressed skull fracture. Bilateral frontal tressa holes redemonstrate d. Paranasal sinuses and mastoid air cells: Clear. Postsurgical changes of the bilateral maxillary sinus es. Visualized orbits: Bilateral aphakia IMPRESSION: Stable to marginal decrease in bilateral chronic subdural hematomas overlying both cerebral convexiti es. No new hemorrhage identified. No midline shift.
== END | disposition home or self-care (01) ==
LOC: RADCTMAIN 07:13
PROVIDERS: ATTEND Neurological Surgery
DX: I62.03 Nontraumatic chronic subdural hemorrhage (principal)
CPT/HCPCS: 70450

== ENCOUNTER 2022-09-28 08:26 | Emergency (ER) | payer MEDICARE, BC ==
[2022-09-28 08:30] VITALS: RESP 18
[2022-09-28] MEDS ORDERED: KETOROLAC 15 MG/ML 1 ML VIAL IVP STA ×2 (08:41→13:28)
[2022-09-28] MEDS ORDERED: SODIUM CHLORIDE 0.9% 500 ML 500 ML IV STA (08:41)
[2022-09-28] MEDS ORDERED: ONDANSETRON 4 MG/2 ML VIAL IVP STA (08:42)
--- NOTE | 2022-09-28 09:24 | ED ---
Abdominal Pain HPI - General Chief Complaint: Abdominal Pain Stated Complaint: R Side Rib Pain Time Seen by Provider: 09/28/22 08:29 Source: patient, RN notes reviewed Mode of arrival: wheelchair Limitations: no limitations - History of Present Illness Initial Comments: This is an 86-year-old male who presents to the emergency department for abdominal pain. States that this morning, he started to develop increasing pain to the right upper quadrant. Denies any history of similar symptoms in the past. He had meatloaf and mashed potatoes for dinner last night. He has minor associated nausea. Denies any diarrhea or constipation. Also denies any chest pain or shortness of breath. Denies any fevers, chills, sore throat, cough, dyspnea, chest pain, palpitations, vomiting, diarrhea, back pain, or headaches. MD Complaint: abdominal pain Location: RUQ - Related Data Home Medications Medication Instructions Recorded Confirmed Rosuvastatin Calcium [Crestor] 10 mg PO HS 07/21/15 08/20/20 [place]-3 Fatty Acids/Fish Oil [Fish 1 cap PO DAILY 10/01/15 08/20/20 Oil 1,000 mg Softgel] Pioglitazone HCl [Actos] 45 mg PO DAILY 10/01/15 08/20/20 atenoloL [Tenormin] 25 mg PO BID 10/01/15 08/20/20 Cholecalciferol [Vitamin D3 (25 2,000 unit PO DAILY 10/02/16 08/20/20 Mcg = 1000 Iu)] Ferrous Sulfate [Iron (65 MG 325 mg PO TID 10/02/16 08/20/20 Elemental)] Pantoprazole Sodium [Protonix] 40 mg PO DAILY 10/02/16 08/20/20 calcitrioL [Rocaltrol] 0.25 mcg PO MOTH 10/25/17 08/20/20 Ascorbic Acid [Vitamin C] 500 mg PO DAILY 08/20/20 08/20/20 Cinnamon Bark [Cinnamon] 500 mg PO DAILY 08/20/20 08/20/20 Tamsulosin [Flomax] 0.4 mg PO DAILY 08/20/20 08/20/20 Ubidecarenone [Co Q-10] 100 mg PO DAILY 08/20/20 08/20/20 Previous Rx's Medication Instructions Recorded Digoxin [Lanoxin] 125 mcg PO DAILY #30 tab 07/26/15 Warfarin [Coumadin] 5 mg PO DAILY tab 10/28/17 Acetaminophen-Codeine 300-30mg 1 tab PO Q6H PRN 3 Days #8 tablet 09/28/22 [Tylenol w/codeine #3] Allergies Allergy/AdvReac Type Severity Reaction Status Date / Time chlorpheniramine Allergy Unknown Verified 09/28/22 08:30 [From Deconamine] Penicillins Allergy Unknown Verified 09/28/22 08:30 pseudoephedrine Allergy Unknown Verified 09/28/22 08:30 [From Deconamine] Review of Systems ROS Statement: Those systems with pertinent positive or pertinent negative responses have been documented in the HPI. ROS Other: All systems not noted in ROS Statement are negative. Past Medical History Past Medical History: Atrial Fibrillation, Diabetes Mellitus, GERD/Reflux, GI Bleed, Hyperlipidemia, Hypertension, Renal Disease Additional Past Medical History / Comment(s): ANtral ulcer per EGD. Other hx: episodes of epistaxis, chronic renal failure, iron deficiency anemia, vertigo. History of Any Multi-Drug Resistant Organisms: None Reported Past Surgical History: Appendectomy, Tonsillectomy Additional Past Surgical History / Comment(s): 07/23/15 EGD, surgery on head for brain bleed february 2022 Past Anesthesia/Blood Transfusion Reactions: No Reported Reaction Additional Past Anesthesia/Blood Transfusion Reaction / Comment(s): Pt recently (last admission) received blood without reaction. Past Psychological History: No Psychological Hx Reported Smoking Status: Never smoker Past Alcohol Use History: Rare Past Drug Use History: None Reported - Past Family History Mother Family Medical History: Asthma, Congestive Heart Failure (CHF), COPD Father Additional Family Medical History / Comment(s): anerurysm between the heart and the lung General Exam Limitations: no limitations General appearance: alert, in no apparent distress Head exam: Present: atraumatic, normocephalic, normal inspection Respiratory exam: Present: normal lung sounds bilaterally. Absent: respiratory distress, wheezes, rales, rhonchi, stridor Cardiovascular Exam: Present: regular rate, normal rhythm, normal heart sounds. Absent: systolic murmur, diastolic murmur, rubs, gallop, clicks GI/Abdominal exam: Present: soft, tenderness (RUQ), normal bowel sounds. Absent: distended Neurological exam: Present: alert, oriented X3, CN II-XII intact Psychiatric exam: Present: normal affect, normal mood Skin exam: Present: warm, dry, intact, normal color. Absent: rash Course Vital Signs 09/28/22 09/28/22 08:27 11:01 Pulse Rate 89 107 H Respiratory 18 18 Rate Blood Pressure 178/78 159/79 O2 Sat by Pulse 98 97 Oximetry Medical Decision Making - Medical Decision Making This is an 86-year-old male who presents to the emergency department for right upper quadrant pain. Was pt. sent in by a medical professional or institution? @ -No Did you speak to anyone other than the patient for history? @ -His son Did you review nursing and triage notes? @ -Yes, and I agree, it is accurate with regards to the patient's symptoms. Were old charts reviewed? @ -Yes, CT scan of the abdomen from 05/17/2019 revealing cholelithiasis. Differential Diagnosis? @ -Differential Abdominal Pain Men: Cholecystitis, diverticulosis, ischemic bowel, pancreatitis, hepatitis, UTI, gastroenteritis, AAA, incarcerated hernia, bowel obstruction, constipation, inflammatory bowel, hepatitis, peptic ulcer disease, splenic infarction, perforated viscus, testicular torsion, this is not meant to be an all-inclusive list EKG interpreted by me (3pts min.)? @ -Atrial fibrillation. Ventricular rate 99 beats per minute, QRS duration 88 ms, QTC [address] interpreted by me (1pt min.)? @ -Computed tomography scan of the abdomen and pelvis obtained. My dictation identifies cholelithiasis. I do not identify any signs of free air or bowel wall thickening. U/S interpreted by me (1pt. min.)? @ -Gallbladder ultrasound obtained. My interpretation is very limited by bowel gas, however I cannot identify any evidence of cholelithiasis. What testing was considered but not performed? (CT, X-rays, U/S, labs)? Why? @ -None What meds were considered but not given? Why? @ -None Did you discuss the management of the patient with other professionals? @ -No Did you reconcile home meds? @ -No Was smoking cessation discussed for >3mins.? @ -No Was critical care preformed (if so, how long)? @ -No Were there social determinants of health that impacted care today? How? (Homelessness, low income, unemployed, alcoholism, drug addiction, transportation, low edu. Level, literacy, decrease access to med. care, [facility], rehab)? @ -No Was there de-escalation of care discussed even if they declined? (Discuss DNR or withdrawal of care, Hospice)? @ -No What co-morbidities impacted this encounter? (DM, HTN, Smoking, COPD, CAD, Cancer, CVA, Hep., AIDS, mental health diagnosis, sleep apnea, morbid obesity)? @ -A-fib, DM, GERD, HLD, HTN Was patient admitted / discharged? @ -Discharged. Lab work obtained revealing leukocytosis and otherwise no actionable findings. Gallbladder ultrasound was initially obtained, however visualization was limited by overlying bowel gas. He was given Toradol, Zofran, and fluids with significant improvement in symptoms. Given the limited visibility on the ultrasound, computed tomography scan of the abdomen and pelvis was subsequently obtained. This revealed a hydropic gallbladder with choleli thiasis. We did a PO challenge with the patient with crackers and peanut butter. This did start to make the pain return. Given the high fat content in the peanut butter, the location of his pain, and CT scan findings, symptoms are suggestive of biliary colic. I did give the patient the option of admission, given the symptomatic nature of his symptoms and his age. Patient declined and requested discharge home. Prescription for Tylenol #3 provided due to his inability to take NSAIDs correction, as he is on blood thinners. He is advised to take the Tylenol #3 sparingly when his pain is the most severe, and to otherwise just take Tylenol. Also advised that this is sedating and he should a void driving or operating machinery when taking this. Information for general surgery follow-up provided. He is instructed to contact them in the morning for a follow-up appointment. He is also instructed to follow a low-fat diet for the meantime to reduce the likelihood of symptom recurrence. Undiagnosed new problem with uncertain prognosis? @ -None Drug Therapy requiring intensive monitoring for toxicity (Heparin, Nitro, Insulin, Cardizem)? @ -None Were any procedures done? @ -None Diagnosis/symptom? @ -Cholelithiasis, biliary colic Acute, or Chronic, or Acute on Chronic? @ -Acute Uncomplicated (without systemic symptoms) or Complicated (systemic symptoms)? @ -Uncomplicated Side effects of treatment? @ -None Exacerbation, Progression, or Severe Exacerbation] @ -Not applicable Poses a threat to life or bodily function? @ -No Return precautions reviewed in depth, the patient is instructed to return to the emergency department with any new, worsening, or concerning symptoms. Patient verbalized understanding. This case was discussed in detail with the attending ED physician, Dr. Obrien. Presentation, findings, and treatment plan discussed in detail as well. - Lab Data Result diagrams: 09/28/22 09:11 09/28/22 09:11 Lab Results 09/28/22 09/28/22 09/28/22 Range/Units 09:11 09:11 09:11 WBC 11.5 H (3.8-10.6) k/uL RBC 5.20 (4.30-5.90) m/uL Hgb 14.8 (13.0-17.5) gm/dL Hct 46.7 (39.0-53.0) % MCV 89.9 (80.0-100.0) fL MCH 28.5 (25.0-35.0) pg MCHC 31.7 (31.0-37.0) g/dL RDW 13.3 (11.5-15.5) % Plt Count 158 (150-450) k/uL MPV 7.0 Neutrophils % 84 % Lymphocytes % 9 % Monocytes % 5 % Eosinophils % 1 % Basophils % 0 % Neutrophils # 9.7 H (1.3-7.7) k/uL Lymphocytes # 1.1 (1.0-4.8) k/uL Monocytes # 0.6 (0-1.0) k/uL Eosinophils # 0.1 (0-0.7) k/uL Basophils # 0.0 (0-0.2) k/uL Sodium 139 (137-145) mmol/L Potassium 4.5 (3.5-5.1) mmol/L Chloride 104 (98-107) mmol/L Carbon Dioxide 26 (22-30) mmol/L Anion Gap 9 mmol/L BUN 20 (9-20) mg/dL Creatinine 1.21 (0.66-1.25) mg/dL Est GFR (CKD-EPI)AfAm 63 (>60 ml/min/1.73 sqM) Est GFR (CKD-EPI)NonAf 55 (>60 ml/min/1.73 sqM) Glucose 189 H (74-99) mg/dL Plasma Lactic Acid Lv 1.6 (0.7-2.0) mmol/L Calcium 9.0 (8.4-10.2) mg/dL Total Bilirubin 0.7 (0.2-1.3) mg/dL AST 30 (17-59) U/L ALT 25 (4-49) U/L Alkaline Phosphatase 55 (38-126) U/L Total Protein 7.2 (6.3-8.2) g/dL Albumin 4.2 (3.5-5.0) g/dL Amylase 34 (30-110) U/L Lipase 61 (23-300) U/L - Radiology Data Radiology results: report reviewed, image reviewed Disposition Clinical Impression: Biliary colic, Cholelithiasis Disposition: HOME SELF-CARE Instructions (If sedation given, give patient instructions): Biliary Colic (ED), Gallstones (ED), Low Fat Diet (ED) Additional Instructions: Return to the emergency department with any new, worsening, or concerning symptoms. Take the Tylenol #3 sparingly when your pain is the most severe, and be aware that it may be sedating. Otherwise take Tylenol. Contact general surgery as listed below first thing in the morning for a follow-up appointment regarding the gallstones and biliary colic. Follow up with your primary care provider in 1-2 days. Prescriptions: Acetaminophen-Codeine 300-30mg [Tylenol w/codeine #3] 1 tab PO Q6H PRN 3 Days #8 tablet PRN Reason: Pain Is patient prescribed a controlled substance at d/c from ED?: Yes When asked, does pt state using other controlled substances?: No If prescribed controlled substance>3 days was MAPS reviewed?: Prescribed <3 Days Referrals: Mera Garcia MD [Primary Care Provider] - 1-2 days Cruz Pabon MD [STAFF PHYSICIAN] - 1-2 days
[2022-09-28 09:29] LABS: Basophils % (A) 0 %; Eosinophils # (A) 0.1 k/uL (0-0.7); Eosinophils % (A) 1 %; HCT 46.7 % (39.0-53.0); HGB 14.8 gm/dL (13.0-17.5); Lymphocytes # (A) 1.1 k/uL (1.0-4.8); Lymphocytes % (A) 9 %; MCH 28.5 pg (25.0-35.0); MCHC 31.7 g/dL (31.0-37.0); MCV 89.9 fL (80.0-100.0); Monocytes # (A) 0.6 k/uL (0-1.0); Monocytes % (A) 5 %; Neutrophils # (A) 9.7 k/uL (1.3-7.7); Neutrophils % (A) 84 %; Platelet Count 158 k/uL (150-450); RDW 13.3 % (11.5-15.5); WBC 11.5 k/uL (3.8-10.6)
[2022-09-28 09:39] LABS: Albumin 4.2 g/dL (3.5-5.0); Potassium 4.5 mmol/L (3.5-5.1); Total Bilirubin 0.7 mg/dL (0.2-1.3); Total Protein 7.2 g/dL (6.3-8.2)
--- NOTE | 2022-09-28 09:58 | US ---
EXAMINATION TYPE: US gallbladder DATE OF EXAM: 09/28/2022 COMPARISON: NONE CLINICAL INDICATION: Male, 86 years old with history of RUQ pain; RUQ pain very limited exam due to o verlying bowel gas. TECHNIQUE: Multiple sonographic images of the right upper quadrant are obtained. FINDINGS: EXAM MEASUREMENTS: Liver Length: 16.9 cm Gallbladder Wall: .3 cm CBD: Obscured by bowel gas. Right Kidney: 9.2 x 5.6 x 4.3 cm PACKING CHECKER NOTES: Pancreas: Obscured by bowel gas Liver: Obscured by overlying bowel gas limited Gallbladder: Obscured by overlying bowel gas no stones visualized in portions imaged. Evidence for sonographic Loomis's sign: No CBD: Obscured by overlying bowel gas Right Kidney: Limited hypoechoic area seen upper pole 3.4 cm. IMPRESSION: Limited study given overlying bowel content. Possible cyst upper pole right kidney.
--- NOTE | 2022-09-28 10:55 | CT ---
EXAMINATION TYPE: CT abdomen pelvis w con DATE OF EXAM: 09/28/2022 COMPARISON: Ultrasound gallbladder 09/28/[address] abdomen 05/17/2019 HISTORY: Right sided abdominal pain CT DLP: 804 mGycm CONTRAST: CT scan of the abdomen and pelvis is performed and without and with IV Contrast, patient injected wit h 80 mL of Isovue 300. FINDINGS: LUNG BASES-: No visible nodule. No infiltrate. LIVER/GB: There is gallbladder is hydropic measuring 10.6 cm in greatest dimension. There is evidence of cholelithiasis. Gallbladder wall measures 2.5 mm. No definite pericholecystic fluid or inflammato ry change. Left lobe hepatic cyst measuring 2.1 cm. No space occupying hepatic lesion. Biliary tree i s of normal caliber. PANCREAS: No inflammation. No distinct mass. SPLEEN: No splenic enlargement. No lesion seen. Splenic granulomas identified. ADRENALS: No nodule. No thickening. KIDNEYS/BLADDER: No hydronephrosis. No nephrolithiasis. Exophytic right renal cyst measuring 2.8 cm . No solid renal mass identified. Urinary bladder grossly unremarkable. BOWEL: Nonvisualization of the appendix. Normal bowel caliber. No inflammation. GENITAL ORGANS: There is prostate gland enlargement. LYMPH NODES: No greater than 1cm abdominal or pelvic lymph nodes are appreciated. AORTA: No significant abnormality. OSSEOUS STRUCTURES: No significant abnormality is seen. OTHER: No significant additional abnormality is seen. IMPRESSION: 1. Gallbladder hydrops with cholelithiasis. 2. Simple cyst right kidney. 3. No evidence for abscess or free air.
[2022-09-28] MEDS ORDERED: ONDANSETRON 4 MG ODT STARTER PACK 2 TAB BTL PO STA (13:29)
[2022-09-28] MEDS ORDERED: ACET/COD 300 MG/30 MG STARTER PACK 6 TAB BTL PO STA (13:29)
[2022-09-28 15:35] VITALS: BP 154/80; PULSE 92; TEMP 97.6
== END 2022-09-28 15:18 | disposition home or self-care (01) ==
LOC: EC 08:26
DX: K80.50 Calculus of bile duct without cholangitis or cholecystitis without obstruction (principal); K80.20 Calculus of gallbladder without cholecystitis without obstruction; I48.91 Unspecified atrial fibrillation; E11.9 Type 2 diabetes mellitus without complications; K21.9 Gastro-esophageal reflux disease without esophagitis; E78.5 Hyperlipidemia, unspecified; I10 Essential (primary) hypertension; Z79.84 Long term (current) use of oral hypoglycemic drugs; Z79.899 Other long term (current) drug therapy; Z88.6 Allergy status to analgesic agent; Z88.0 Allergy status to penicillin; Z88.8 Allergy status to other drugs, medicaments and biological substances
CPT/HCPCS: 36415; 93005; 80053; 82150; 83605; 83690; 85025; 76705; 74177; 99285; 96374; 96375; 96376; 96361; J2405; J1885; S0119; Q9967

== ENCOUNTER → 2022-12-24 | Outpatient (CLI) | payer MEDICARE, BC ==
--- NOTE | 2022-12-24 22:41 | CT ---
EXAMINATION TYPE: CT brain wo con DATE OF EXAM: 12/24/2022 COMPARISON: 08/29/2022 HISTORY: 87-year-old male I62.03, h/o subdural hemorrhage f/u TECHNIQUE: Examination was done in axial plane without intravenous contrast. Coronal and sagittal r econstructions performed. CT DLP: 1213 mGycm Automated exposure control for dose reduction was used. FINDINGS: There is redemonstration of a trace isodense extra-axial fluid collection extending along the bilater al convexities. This measures up to 3 mm on the left versus 4 mm, previously and now 2 mm on the righ t versus 4 mm previously. Bifrontal tressa holes are redemonstrated. Mild to moderate hydrocephalus is now present with Greg's ratio calculated at 0.40 versus 0.36, previ ously. Atherosclerotic calcifications within the carotid siphons. Partially empty sella. Small area of cortical hypodensity posterior right parietal lobe was present previously as well sugge sting a small area of previous cortical infarct. No evidence for acute intracranial hemorrhage, acute ischemic change, mass, mass effect, midline shif t. Carver-white matter differentiation is maintained. No effacement of cerebral sulci and basal subarac hnoid cisterns. There is scattered trace mucosal thickening ethmoid air cells. Mastoid air cells well pneumatized. Or bits and globes appear intact. IMPRESSION: 1. Trace subdural hematomas redemonstrated along the bilateral convexities. These remain isodense sug gesting subacute subdural hematomas measuring 3 mm on the left (versus 4 mm, previously) and now 2 mm on the right (versus 4 mm, previously). Subacute possibly due to an interval rebleed some weeks ago. 2. There seems to have been slight interval progression in hydrocephalus, now [id number] in deg ree. Correlate to exclude a component of NPH. 3. 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 Previous bifrontal tressa holes. No acute intracranial body seen.
== END | disposition home or self-care (01) ==
LOC: RADCTMAIN 12:45
PROVIDERS: ATTEND Neurological Surgery
DX: I62.03 Nontraumatic chronic subdural hemorrhage (principal); G91.9 Hydrocephalus, unspecified; Z86.73 Personal history of transient ischemic attack (TIA), and cerebral infarction without residual deficits
CPT/HCPCS: 70450

== ENCOUNTER → 2024-01-01 | Day surgery (SDC) | payer MEDICARE, BC ==
[~2024-01-01] MED LIST: fentaNYL (PF) 50 MCG/ML 2 ML AMP ONE
[2024-01-01] MEDS: SODIUM CHLORIDE 0.9% 500 ML 500 ML IV SCH (11:10)
[2024-01-01 11:19] LABS: Glucose,Whole Blood 111 mg/dL (70-110)
[2024-01-01 11:20] VITALS: TEMP 98.6
[2024-01-01] MEDS: MIDAZOLAM 2 MG/2 ML VIAL IVP ONE (12:05)
[2024-01-01] MEDS: BENZOCAINE SPRAY 1 CAN TOPICAL ONE (12:05)
[2024-01-01] MEDS: fentaNYL (PF) 50 MCG/ML 2 ML AMP IVP ONE (12:05)
--- NOTE | 2024-01-01 12:16 | P.PCN ---
Date of Procedure: 01/01/24 Operative Findings: TRANSESOPHAGEAL ECHOCARDIOGRAM DIRECTOR DENTAL SERVICES: KAYLA TALLEY MD, RPVI INDICATION: Rule out left atrial appendage thrombus SEDATION: Conscious sedation COMPLICATION: None LEVEL OF SEDATION Moderate to sedation length of 20 minutes PROCEDURE DESCRIPTION: After obtaining an informed consent, the patient was brought to transesophageal echocardiogram room. Pulse oximetry and heart monitors were attached to the patient. The patient throat was sprayed using lidocaine. The patient was turned into left lateral position. After that a bite guard was placed. After an appropriate conscious sedation was initiated, the transesophageal echocardiogram was advanced through a bite guard into the mid esophagus. A 2-D echocardiogram images, color Doppler images, continuous wave images, pulse-wave images, of various cardiac structure were performed. After that the transesophageal echocardiogram probe was advanced into the stomach and fixed to obtain transgastric view was. The probe was brought into the mid esophagus. Inter-atrial septum was interrogated using 2D images, color Doppler images, and then contrast study. After that transesophageal echocardiogram was withdrawn out and upon withdrawing the descending thoracic aorta all the way up to the arch was evaluated. CONCLUSION: 1. Intact left atrial appendage with no evidence of thrombus 2. Intact interatrial septum 3. Mildly impaired LV function with a EF around 45% 4. Aortic sclerosis with moderate stenosis with aortic valve area of 1.2 cm by planimetry 5. Moderate mitral regurgitation and thickened mitral valve leaflets 6. No evidence of pericardial effusion
[2024-01-01 15:43] VITALS: RESP 16
[2024-01-01 15:54] VITALS: BP 141/81; PULSE 80
== END ==
LOC: CATHCVL 10:47
PROVIDERS: ATTEND Internal Medicine Interventional Cardiology
DX: I48.21 Permanent atrial fibrillation (principal); I77.819 Aortic ectasia, unspecified site; I11.0 Hypertensive heart disease with heart failure; I50.9 Heart failure, unspecified; E11.69 Type 2 diabetes mellitus with other specified complication; E78.5 Hyperlipidemia, unspecified; J44.9 Chronic obstructive pulmonary disease, unspecified; I25.2 Old myocardial infarction; Z82.49 Family history of ischemic heart disease and other diseases of the circulatory system; Z86.73 Personal history of transient ischemic attack (TIA), and cerebral infarction without residual deficits; Z88.0 Allergy status to penicillin; Z88.8 Allergy status to other drugs, medicaments and biological substances; Z88.1 Allergy status to other antibiotic agents; Z79.01 Long term (current) use of anticoagulants; Z79.84 Long term (current) use of oral hypoglycemic drugs; Z79.899 Other long term (current) drug therapy
CPT/HCPCS: 93312; 93320; 93325; J2250; J3010